=== PATIENT | male | born 1950 | race Caucasian/White ===

== ENCOUNTER 2021-08-25 09:03 | Outpatient (REF) | payer MEDICARE, SELFPAY ==
[2021-08-25 11:28] LABS: MANUAL DIFF FLAG NO
[2021-08-25 11:49] LABS: Basophils Percent Auto 0.9 % (0-2); Eosinophils Absolute Auto 0.2 X10*3/uL (0.0-0.4); Eosinophils Percent Auto 4.6 % (0-4); Hematocrit 41.9 % (42.0-52.0); Hemoglobin 13.2 g/dl (14.0-18.0); Imm Gran Abs Auto 0.01 X10*3/uL (0.00-0.03); Imm Gran Pct Auto 0.2 % (0.0-0.4); Lymphocytes Absolute Auto 1.2 X10*3/uL (1.2-4.9); Lymphocytes Percent Auto 26.7 % (20-40); Mean Corpuscular HGB Conc 31.5 g/dl (31.0-36.0); Mean Corpuscular Hemoglobin 26.1 pg (27.0-33.0); Mean Platelet Volume 11.5 fL (9.4-12.4); Monocytes Absolute Auto 0.6 X10*3/uL (0.1-1.2); Monocytes Percent Auto 12.6 % (2-11); Neutrophils Absolute Auto 2.4 x10*3/uL (2.0-8.3); Platelet Count 247 X10*3/uL (160-400); Red Blood Count 5.05 X10*6/uL (4.60-5.80); Red Cell Distribution Width 14.4 % (11.0-16.0); White Blood Count 4.4 X10*3/uL (4.8-10.8)
[2021-08-25 12:01] LABS: Alanine Aminotransferase 18 U/L (0-40); Albumin Level 4.4 g/dL (3.5-5.0); Alkaline Phosphatase 116 U/L (39-117); Anion Gap 11 (12-20); Aspartate Amino Transferase 18 U/L (5-37); Bilirubin Total 0.4 mg/dL (0.0-1.0); Blood Urea Nitrogen 18 mg/dL (9-16); Calcium 9.6 mg/dL (8.4-10.2); Carbon Dioxide 29 mmol/L (22-29); Chloride 104 mmol/L (96-108); Cholesterol 174 mg/dL; Estimated Glomerular Filt Rate > 60; Glucose Fasting 92 mg/dL (60-99); HDL Cholesterol 35 mg/dL; Iron 34 mcg/dL (45-160); LDL Cholesterol Calculated 120 mg/dl; Percent Iron Saturation 8 % (15-50); Potassium 4.5 mmol/L (3.3-5.1); Sodium 139 mmol/L (135-145); Total Iron Binding Capacity 410 mcg/dL (228-428); Total Protein 7.8 g/dL (6.5-8.0); Triglycerides 98 mg/dL; Unsaturated Iron Binding 376 ug/dL
[2021-08-25 12:24] LABS: Ferritin 30 ng/mL (20-250); Prostate Specific Antigen Scr 3.25 ng/mL (<0.05-4.0); TSH reflex Free T4 8.98 uIU/mL (0.32-4.0)
[2021-08-25 13:09] LABS: Free T4 (Free Thyroxine) 0.93 ng/dL (0.71-1.85)
== END 2021-08-25 09:04 | disposition home or self-care (01) ==
LOC: HO.WFDLDS 09:03
PROVIDERS: Visit Provider Family Medicine
DX: Z00.00 Encounter for general adult medical examination without abnormal findings (principal); D50.9 Iron deficiency anemia, unspecified; E03.9 Hypothyroidism, unspecified; Z12.5 Encounter for screening for malignant neoplasm of prostate
CPT/HCPCS: 36415; 80053; 80061; 82728; 83540; 84153; 84439; 84443; 85025

== ENCOUNTER 2021-09-01 07:43 | Outpatient (REF) | payer MEDICARE, SELFPAY ==
--- NOTE | ~2021-09-01 | CT_ITS ---
EXAMINATION: CT CHEST WITH CONTRAST CLINICAL INFORMATION: Solitary pulmonary nodule COMPARISON: Previous chest CT most recent January 2020 TECHNIQUE: Multidetector volumetric CT imaging of the chest was obtained after the administration of 65 mL of Omnipaque 350 intravenous contrast without immediate adverse reactions. Axial MIP volume rendering provided. Sagittal and coronal reformatted images were obtained. This CT examination was performed using dose optimization techniques as appropriate, variously including the following: *Automated exposure control *Adjustment of mA and/or kV according to patient size (this includes techniques or standardized protocols for targeted exams where dose is matched to indication/reason for exam; i.e. extremities or head) *Use of iterative reconstruction technique DLP: 136 mGy-cm FINDINGS: PASTRY COOK HELPER: Unremarkable LUNGS: There is biapical pleural and parenchymal scarring that is stable. There is a 4 mm peripheral or subpleural right upper lobe nodule axial image 32 series 5 and may be related to and parenchymal scarring that is stable. There is a 3 mm perivascular right lower lobe nodule axial image 149 series 5 that is stable. There is a 3 mm probably calcified right lower lobe nodule axial image 160 series 5 that is stable. The lungs are otherwise clear. No new pulmonary nodule is seen. MEDIASTINUM: There may be a small esophageal hernia. The mediastinum is normal. PLEURA: There is no pleural effusion. No pleural mass or thickening. AXILLA: No lymphadenopathy. UPPER ABDOMEN: There is a 1 x 1.5 cm low-attenuation lesion high in the dome of the right lobe of the liver that is stable and probably represents a cyst. There is a partially calcified low-attenuation lesion in the spleen that measures 3.3 cm that is stable. There is a 1 cm low-attenuation lesion exophytic to the upper pole of the left kidney probably representing a cyst that is stable. OSSEOUS STRUCTURES: There are degenerative changes and mild scoliosis of the spine. CT/CT chest w con IMPRESSION: Stable biapical pleural parenchymal scarring and small pulmonary nodules. Stable abdominal findings. Fleischner guidelines were followed.
[2021-09-01] MEDS: iohexoL 350 MG/ML 100 ML INFUS..BTL IV (08:54)
== END 2021-09-01 07:44 | disposition home or self-care (01) ==
LOC: HO.CT 07:43
PROVIDERS: Visit Provider Family Medicine
DX: R91.1 Solitary pulmonary nodule (principal)
CPT/HCPCS: 71260; Q9967

== ENCOUNTER 2023-10-08 13:59 | Outpatient (AMB) | payer MEDICARE, SELFPAY ==
[2023-10-08 14:04] VITALS: BP 158/80; PULSE 95; O2SAT 95; BMI 34.3
--- NOTE | 2023-10-08 14:04 | MHC.PC.OV ---
Vital Signs 10/08/23 14:04 Height 5 ft 6 in Weight 212 lb 8 oz BMI 34.3 BP 158/80 H Blood Pressure Location Lt brachial Position Sitting Pulse 95 Pulse Source Pulse Oximeter Pulse Oximetry (%) 95 Oxygen Delivery Method Room Air Intake Visit Reasons: Annual Physical Intake Note: Patient is here for his annual physical. Allergies No Known Allergies Allergy (Verified 10/08/23 14:07) Tobacco use date assessed: 10/08/23 Fall risk assessment: No Falls in past year Last assessed Fall Risk: 10/08/23 Dental Screening Dental Screen Date: 10/08/23 Did you have a dental visit in the last 12 months?: Yes Did you have a dental problem in the last 6 months where you did not have access to dental care?: No Was dental information given to patient?: Patient has dentist HPI Annual Physical HPI Details 73 y/o male presents for a CPE with f/u labs and health maintenance. No recent labs to review. Blood pressure today 158/80. He notes he was stressed earlier getting to his appointment today. [facility] Social History Housing: [place] Patient Tobacco Use Status: Never used Tobacco e-Cigarette/Vaping Use: Never Used service: Yes Current occupational status: retired Cognitive needs: No Hearing needs: No Vision needs: Yes (Patient wears glasses) Questionnaire PHQ-9 Over the last 2 weeks, how often have you been bothered by any of the following problems? 1. Little interest or pleasure in doing things: not at all 2. Feeling down, depressed, or hopeless: not at all 3. Trouble falling or staying asleep, or sleeping too much: not at all 4. Feeling tired or having little energy: not at all 5. Poor appetite or overeating: not at all 6. Feeling bad about yourself - or that you are a failure or have let yourself or your family down: not at all 7. Trouble concentrating on things, such as reading the newspaper or watching television: not at all 8. Moving or speaking so slowly that other people could have noticed. Or the opposite - being so fidgety or restless that you have been moving around a lot more than usual: not at all 9. Thoughts that you would be better off or of hurting yourself in some way: not at all Total score: 0 Source: Developed by Drs. Zeke Robbins, Margarita Alexander, Mihir Layton and colleagues, with an educational jovan from [employer] Thrive Questionnaire Date Thrive assessed: 10/08/23 I am a: Patient What is your living situation today?: I have a steady place to live Within the past 12 months, did the food you bought not last and you didn't have the money to get more?: Never true Within the past 12 months, did you worry whether your food would run out before you got money to buy more?: Never true Do you have trouble paying for medicines?: No Do you have trouble getting transportation to medical appointments?: No Do you have trouble paying your heating and electricity bill?: No Do you have trouble taking care of your child, family member or friend?: No Do you have trouble with day-to-day activities such as bathing, preparing meals, shopping, managing finances, etc.?: No Are you currently unemployed and looking for a job?: No Are you interested in more education?: No THRIVE Score: 0 AUDIT C Alcohol Use Questionnaire (AUDIT-C) 1. How often do you have a drink containing alcohol?: Never 3. How often do you have six or more drinks on one occasion?: Never Total Score: 0 HERB-7 AMB Questionnaire HERB-7 Date HERB - 7 assessed: 10/08/23 Feeling nervous, anxious, or on edge: 0 = Not at all Not being able to stop or control worryin = Not at all Worrying too much about different things: 0 = Not at all Trouble relaxin = Not at all Being so restless that it is hard to sit still: 0 = Not at all Becoming easily annoyed or irritable: 0 = Not at all Feeling afraid as if something awful might happen: 0 = Not at all Total HERB-7 score (0-4 normal; 5-9 mild; 10-14 moderate; 15-21 severe): 0 Source: Developed by Drs. Zeke Robbins, Margarita Alexander, Mihir Layton and colleagues, with an educational jovan from [employer]. Review of Systems Const Denies chills, Denies fatigue, Denies fever(s), Denies headache(s) and Denies weakness Eyes Denies change in vision ENT Denies dizziness, Denies headache(s), Denies hearing loss, Denies nasal congestion, Denies sinus pain, Denies sinus pressure and Denies sore throat Card Denies chest pain, Denies lightheadedness, Denies dyspnea and Denies other (palpitations) Resp Denies cough, Denies dyspnea and Denies wheezing GI Denies abdominal pain, Denies melena, Denies hematochezia, Denies change in bowel habits, Denies dyspepsia and Denies nausea Denies hematuria and Denies dysuria Musc Denies abnormal gait, Denies myalgias, Denies arthralgias, Denies numbness and Denies tingling Skin/Breast Denies rash, Denies unusual bruising and Denies wounds Neuro Denies abnormal gait, Denies dizziness, Denies headache(s), Denies memory loss, Denies numbness, Denies Sensory deficit (Neuro), Denies tingling and Denies weakness Psych Denies anxiety, Denies depression and Denies memory loss Endo Denies cold intolerance, Denies fatigue, Denies heat intolerance, Denies polydipsia and Denies polyuria Bubba/Lymph Denies easy bleeding and Denies easy bruising Aller/Immun Denies wheezing Physical exam (Primary Care) Vital Signs: Last Vital Signs Pulse 95 10/08/23 14:04 BP 158/80 H 10/08/23 14:04 Pulse Ox 95 10/08/23 14:04 Oxygen Delivery Method Room Air 10/08/23 14:04 BMI result Body Mass Index 34.3 Tobacco/Smoking Status: Tobacco use Status Tobacco use date assessed 10/08/23 10/08/23 14:15 Patient Tobacco Use Status Never used Tobacco 10/08/23 14:15 e-Cigarette/Vaping Use Never Used 10/08/23 14:15 PHQ-9: PHQ-9 Score PHQ-9: Total score 0 10/08/23 14:15 Thrive Assessment: Date of Thrive Assessment Date Thrive assessed 10/08/23 10/08/23 14:15 Const General: no acute distress, well developed, alert and awake Nutritional Appearance: well nourished Orientation/consciousness: patient oriented x3 HENMT Head: Yes normocephalic and Yes atraumatic Ears: hearing grossly normal bilaterally and TM's normal bilaterally General nose exam: Normal external nose present and Normal nares present Mouth: Normal oral and palatal mucosa present and moist mucous membranes Teeth and gingiva: dentition normal Throat: Yes posterior oropharynx normal Eyes General: appearance normal, both eyes and all related structures Pupils: Equal, round and reactive pupils present and Pupil accommodation reflex normal EOM: EOMs intact bilaterally Neck Neck: Yes normal visual inspection, Yes no lymphadenopathy and Yes trachea midline Thyroid: Thyroid normal Carotids: no bruits Lymphatic: no lymphadenopathy noted Chest Chest palpation & inspection: normal inspection of the chest Resp Effort & Inspection: normal respiratory effort Auscultation: clear to auscultation bilaterally Cardio Rate: regular rate Rhythm: regular rhythm Heart sounds: S1 normal heart sound present, S2 normal heart sound present, no gallops, no murmurs and no rubs Bruits: no abdominal aortic bruits and no carotid bruits GI Palpation (GI): No Abdominal aortic bruit present, Soft to palpation, nontender, No hepatosplenomegaly present and No Rebound tenderness present Auscultation: normal bowel sounds General: Yes no CVA tenderness Back/Spine/Pelvis Back: no CVA tenderness Cervical Spine: cervical ROM normal and No Cervical spine tenderness Thoracic/Lumbar Spine: thoraco-lumbar ROM normal, No pain with thoraco-lumbar ROM, No thoracic spinal tenderness and No lumbar spinal tenderness Skin Lesions: no lesions Rashes: no rashes Trauma: no lacerations or abrasions Wounds: no wounds Nails: normal Neuro General: patient oriented x3 Cranial nerves: Yes Equal, round and reactive pupils present Cognition (Neuro): normal cognition Gait exam (Neuro): Normal gait present Motor exam (neuro): 5/5 motor strength present throughout Sensory Exam: No Sensory deficit (Neuro) Deep tendon reflexes (DTR's): Right patellar reflex intensity grade: 2+ and Left patellar reflex intensity grade: 2+ Extrem General: Yes normal to inspection and No edema Psych Appearance: grossly normal Affect: normal affect Attitude: cooperative Thought process: Normal thought process present Assessment and Plan Assessment & Plan (1) Adult general medical exam: Code(s): Z00.00 - Encounter for general adult medical examination without abnormal findings Plan: 73-year-old?male?presents?for complete?physical?exam Encouraged?healthy?diet?and?exercise (2) Elevated blood pressure reading: Code(s): R03.0 - Elevated blood-pressure reading, without diagnosis of hypertension Plan: Blood?pressure?significantly?elevated?today?though?it?has?been?okay?in?the?past.??Says?his?blood?pressures?at?home?are?okay. He?notes?that?he?has?a?little?bit?stressed?today Will?follow-up?at?his?next?appointment?in?a?couple?of?weeks.??If?still?elevated?will?discuss?medications. (3) GERD (gastroesophageal reflux disease): Code(s): K21.9 - Gastro-esophageal reflux disease without esophagitis Plan: Managed?with?omeprazole Continue?current?regimen (4) Screening for colon cancer: Code(s): Z12.11 - Encounter for screening for malignant neoplasm of colon Plan: Patient?says?he[facility]ly[facility] He?was?told?to?follow-up?in?5?years Up-to-date (5) Screening for prostate cancer: Code(s): Z12.5 - Encounter for screening for malignant neoplasm of prostate Plan: Check?PSA (6) Solitary pulmonary nodule: Code(s): R91.1 - Solitary pulmonary nodule Plan: History?of?pulmonary?nodules Most?recent?CT?scan?showed?stable?nodules?and?recommended?no?further?workup (7) Moderate persistent asthma: Code(s): J45.40 - Moderate persistent asthma, uncomplicated Plan: Patient?notices?some?shortness?of?breath?when?walking?in?cold?air. Can?use?inhaler Try?to?avoid?very?cold?air Orders: Orders Comprehensive [place]. Panel Fast Today Z00.00 - Encounter for general adult medical examination without abnormal findings Microalbumin, Random (w Creat) Today I10 - Essential (primary) hypertension Prostate Specific Antigen Scr Today Z12.5 - Encounter for screening for malignant neoplasm of prostate TSH reflex Free T4 Today Z00.00 - Encounter for general adult medical examination without abnormal findings Complete Blood Count Auto Diff Today Z00.00 - Encounter for general adult medical examination without abnormal findings Lipid Panel Today Z00.00 - Encounter for general adult medical examination without abnormal findings UA and rflx microscopic Today Z00.00 - Encounter for general adult medical examination without abnormal findings Coding Level of Care Code Est Pt Level 3 (18475) Est Pt Prev Care >65y(81970) Diagnoses Adult general medical exam Z00.00 Elevated blood pressure reading R03.0 GERD (gastroesophageal reflux disease) K21.9 Screening for colon cancer Z12.11 Screening for prostate cancer Z12.5 Solitary pulmonary nodule R91.1 Moderate persistent asthma J45.40
== END 2023-10-08 14:41 | disposition home or self-care (01) ==
PROVIDERS: PCP Family Medicine; Visit Provider Family Medicine
DX: Z00.00 Encounter for general adult medical examination without abnormal findings (principal); R03.0 Elevated blood-pressure reading, without diagnosis of hypertension; K21.9 Gastro-esophageal reflux disease without esophagitis; Z12.11 Encounter for screening for malignant neoplasm of colon; Z12.5 Encounter for screening for malignant neoplasm of prostate; R91.1 Solitary pulmonary nodule; J45.40 Moderate persistent asthma, uncomplicated
CPT/HCPCS: 99397

== ENCOUNTER 2023-10-25 09:10 | Outpatient (REF) | payer MEDICARE, SELFPAY ==
[2023-10-25 11:13] LABS: MANUAL DIFF FLAG NO
[2023-10-25 11:32] LABS: Basophils Percent Auto 0.7 % (0-2); Eosinophils Absolute Auto 0.2 X10*3/uL (0.0-0.4); Eosinophils Percent Auto 3.7 % (0-4); Hematocrit 44.8 % (42.0-52.0); Hemoglobin 13.9 g/dl (14.0-18.0); Imm Gran Abs Auto 0.01 X10*3/uL (0.00-0.03); Imm Gran Pct Auto 0.2 % (0.0-0.4); Lymphocytes Percent Auto 23.6 % (20-40); Mean Corpuscular Volume 83.7 fL (80.0-98.0); Mean Platelet Volume 11.5 fL (9.4-12.4); Monocytes Absolute Auto 0.5 X10*3/uL (0.1-1.2); Monocytes Percent Auto 10.3 % (2-11); Neutrophils Absolute Auto 2.7 x10*3/uL (2.0-8.3); Neutrophils Percent Auto 61.5 % (45-73); Platelet Count 237 X10*3/uL (160-400); Red Blood Count 5.35 X10*6/uL (4.60-5.80); Red Cell Distribution Width 14.5 % (11.0-16.0); White Blood Count 4.4 X10*3/uL (4.8-10.8)
[2023-10-25 11:38] LABS: Appearance Urine Clear; Color Urine Yellow; Glucose Urine UA Negative (Negative); Leukocyte Esterase Urine Negative (Negative); Nitrite Urine Negative (Negative); Urine Blood Negative (Negative); Urine Ketones Negative (Negative); Urine Protein Negative (Neg-Trace)
[2023-10-25 11:48] LABS: Chloride 102 mmol/L (96-108); Potassium 4.5 mmol/L (3.3-5.1); Sodium 139 mmol/L (135-145)
[2023-10-25 11:49] LABS: Alanine Aminotransferase 14 U/L (0-40); Albumin Level 4.4 g/dL (3.5-5.0); Alkaline Phosphatase 128 U/L (39-117); Anion Gap 12 (12-20); Aspartate Amino Transferase 18 U/L (5-37); Bilirubin Total 0.3 mg/dL (0.0-1.0); Blood Urea Nitrogen 19 mg/dL (9-16); Calcium 9.8 mg/dL (8.4-10.2); Carbon Dioxide 30 mmol/L (22-29); Cholesterol 190 mg/dL (<200); Estimated Glomerular Filt Rate > 60; Glucose Fasting 91 mg/dL (60-99); HDL Cholesterol 38 mg/dL (>40); LDL Cholesterol Calculated 132 mg/dL (<100); Total Protein 8.1 g/dL (6.5-8.0); Triglycerides 102 mg/dL (<150)
[2023-10-25 12:02] LABS: Prostate Specific Antigen Scr 3.64 ng/mL (<0.05-4.0)
[2023-10-25 12:10] LABS: Free T4 (Free Thyroxine) 0.81 ng/dL (0.71-1.85); Thyroid Stimulating Hormone 11.69 uIU/mL (0.32-4.0)
[2023-10-25 12:11] LABS: Creatinine Urine 112.14 mg/dL; Microalbum/Creatinine Ratio Ur 28.5 ug/mg cr (<30)
[2023-10-26 09:17] LABS: Triiodothyronine T3 Total 122 ng/dL (76-181)
== END 2023-10-25 09:11 | disposition home or self-care (01) ==
LOC: HO.WFDLDS 09:10
PROVIDERS: Visit Provider Family Medicine
DX: Z00.00 Encounter for general adult medical examination without abnormal findings (principal); I10 Essential (primary) hypertension; E03.9 Hypothyroidism, unspecified; Z12.5 Encounter for screening for malignant neoplasm of prostate
CPT/HCPCS: 36415; 80053; 80061; 81003; 82043; 82570; 84153; 84439; 84443; 84480; 85025

== ENCOUNTER 2023-11-05 13:21 | Outpatient (AMB) | payer MEDICARE, SELFPAY ==
--- NOTE | 2023-11-05 13:36 | MHC.PC.OV ---
Vital Signs 11/05/23 13:37 Height 5 ft 6 in Weight 210 lb BMI 33.9 BP 134/74 Blood Pressure Location Lt brachial Position Sitting Pulse 81 Pulse Source Pulse Oximeter Pulse Oximetry (%) 94 Oxygen Delivery Method Room Air Intake Visit Reasons: follow up labs/BP Intake Note: Patient is here to follow up on labs and blood pressure. Allergies No Known Allergies Allergy (Verified 11/05/23 13:38) Tobacco use date assessed: 11/05/23 Fall risk assessment: No Falls in past year Last assessed Fall Risk: 11/05/23 Dental Screening Dental Screen Date: 11/05/23 Did you have a dental visit in the last 12 months?: Yes Did you have a dental problem in the last 6 months where you did not have access to dental care?: No Was dental information given to patient?: Patient has dentist HPI follow up labs/BP HPI Details 73 y/o male presents to f/u blood pressures and labs. Blood pressure today 134/74. BP last office visit was 158/80. Labs were drawn 10/25/23. Hx of iron deficiency anemia. Hgb mildly low. LDL mildly elevated at 132. HDL low at 38. Hx of hypothyroidism and TSH level 11.69. PFSH Social History Housing: House Patient Tobacco Use Status: Never used Tobacco e-Cigarette/Vaping Use: Never Used service: Yes Current occupational status: retired Cognitive needs: No Hearing needs: No Vision needs: Yes (Patient wears glasses) Questionnaire Thrive Questionnaire Date Thrive assessed: 10/08/23 HERB-7 AMB Questionnaire HERB-7 Date HERB - 7 assessed: 10/08/23 Source: Developed by Drs. Zeke Robbins, Margarita Alexander, Mihir Layton and colleagues, with an educational jovan from [employer]. Review of Systems Const Denies chills, Denies fatigue, Denies fever(s), Denies headache(s) and Denies weakness ENT Denies dizziness and Denies headache(s) Card Denies chest pain, Denies lightheadedness, Denies dyspnea and Denies other (Palpitations) Resp Denies cough, Denies dyspnea, Denies wheezing and Denies other ( shortness of breath) Musc Denies numbness and Denies tingling Neuro Denies dizziness, Denies headache(s), Denies numbness, Denies tingling, Denies paresthesias and Denies weakness Psych Denies anxiety and Denies depression Endo Denies fatigue Aller/Immun Denies wheezing Physical exam (Primary Care) Vital Signs: Last Vital Signs Pulse 81 11/05/23 13:37 BP 134/74 11/05/23 13:37 Pulse Ox 94 11/05/23 13:37 Oxygen Delivery Method Room Air 11/05/23 13:37 BMI result Body Mass Index 33.9 Tobacco/Smoking Status: Tobacco use Status Tobacco use date assessed 11/05/23 11/05/23 13:39 Patient Tobacco Use Status Never used Tobacco 11/05/23 13:37 e-Cigarette/Vaping Use Never Used 11/05/23 13:37 Thrive Assessment: Date of Thrive Assessment Date Thrive assessed 10/08/23 11/05/23 13:37 Const General: no acute distress and well developed Nutritional Appearance: well nourished Orientation/consciousness: patient oriented x3 [facility] Head: Yes normocephalic and Yes atraumatic Eyes General: appearance normal, both eyes and all related structures Pupils: Equal, round and reactive pupils present EOM: EOMs intact bilaterally Resp Effort & Inspection: normal respiratory effort Auscultation: clear to auscultation bilaterally Cardio Rate: regular rate Rhythm: regular rhythm Heart sounds: S1 normal heart sound present, S2 normal heart sound present, no gallops, no murmurs and no rubs Neuro General: patient oriented x3 and gait normal Cranial nerves: Yes Equal, round and reactive pupils present Psych Affect: normal affect Assessment and Plan Assessment & Plan (1) Elevated blood pressure reading: Code(s): R03.0 - Elevated blood-pressure reading, without diagnosis of hypertension Plan: Blood?pressure?in?prehypertensive?range. Encouraged?diet?low?in?salt/sodium Encouraged?weight?loss?and?exercise (2) Iron deficiency anemia: Code(s): D50.9 - Iron deficiency anemia, unspecified Plan: Stable Will?monitor Encouraged?high?iron?foods (3) Acquired hypothyroidism: Code(s): E03.9 - Hypothyroidism, unspecified Plan: Start?levothyroxine?50?mcg?daily Will?recheck?at?next?visit?in?about?3?months (4) Hypercholesterolemia: Code(s): E78.00 - Pure hypercholesterolemia, unspecified Plan: Mildly?elevated?LDL?and?mildly?low?HDL Encouraged?a?diet?low?in?saturated?fats?and?cholesterol Encouraged?weight?loss?and?exercise (5) Low HDL (under 40): Code(s): E78.6 - Lipoprotein deficiency Plan: As?above Orders: Orders Lipid Panel Today E78.00 - Pure hypercholesterolemia, unspecified, Z00.00 - Encounter for general adult medical examination without abnormal findings Free T4 (Free Thyroxine) Today E03.9 - Hypothyroidism, unspecified Thyroid Stimulating Hormone Today E03.9 - Hypothyroidism, unspecified Triiodothyronine T3 Total Today E03.9 - Hypothyroidism, unspecified Medications: New levothyroxine 50 mcg PO DAILY 90 tabs 1RF 90 days Coding Level of Care Code Est Pt Level 4 (91112) Diagnoses Elevated blood pressure reading R03.0 Iron deficiency anemia D50.9 Acquired hypothyroidism E03.9 Hypercholesterolemia E78.00 Low HDL (under 40) E78.6
[2023-11-05 13:37] VITALS: BP 134/74; PULSE 81; O2SAT 94; BMI 33.9
== END 2023-11-05 14:02 | disposition home or self-care (01) ==
PROVIDERS: PCP Family Medicine; Visit Provider Family Medicine
DX: R03.0 Elevated blood-pressure reading, without diagnosis of hypertension (principal); D50.9 Iron deficiency anemia, unspecified; E03.9 Hypothyroidism, unspecified; E78.00 Pure hypercholesterolemia, unspecified; E78.6 Lipoprotein deficiency
CPT/HCPCS: 99214

== ENCOUNTER 2024-01-03 11:54 | Outpatient (AMB) | payer MEDICARE, SELFPAY ==
--- NOTE | 2024-01-03 11:56 | MHC.OFFWIV ---
Intake Vital Signs 01/03/24 11:57 01/03/24 12:00 Height 5 ft 6 in Weight 205 lb BMI 33.1 BP 148/90 H 144/88 H Blood Pressure Location Rt brachial Rt brachial Position Sitting Sitting Respiration 16 Pulse 87 Pulse Source Pulse Oximeter Temp 97.3 F Temp Source Oral Pulse Oximetry (%) 96 Oxygen Delivery Method Room Air Intake Visit Reasons: ?tick bite would like to make sure not infected Intake Note: Tick bite inside of right thigh. Patient Tobacco Use Status: Never used Tobacco Otolaryngology Nurse Required: No Allergies tramadol Allergy (Severe, Verified 01/03/24 11:57) Nightmare Do you need a note to return to daycare/school/sports/work: No HPI ?tick bite would like to make sure not infected HPI Details Patient is a 73-year-old male with a significant past medical history asthma, GERD, hyperlipidemia, elevated blood pressure readings without diagnosis of hypertension presenting today with complaints of a tick bite. He states that he believes he got bit by a tick sometime over the weekend and on Sunday tried taking the tick out himself. He states that it was imbedded and hard to remove and he had to use tweezers. He states that surrounding the bite the skin is now red but not painful. He just wants to make sure that he does not develop Lyme disease. No history of Lyme. Denies any joint pain or swelling, paresthesias, fever chills. He states that he has had tick bites in the past and has 2 dogs at home who have tics on them often. His blood pressure today is elevated in the office at 144/88. States that it has been elevated in the past but he has been trying to watch his diet. He does not want to start a medication just yet and does have an upcoming appointment with his PCP. He states that he knows after today that he needs to be better with this. [facility] Social History Housing: House Patient Tobacco Use Status: Never used Tobacco e-Cigarette/Vaping Use: Never Used service: Yes Current occupational status: retired Cognitive needs: No Hearing needs: No Vision needs: Yes (Patient wears glasses) Physical Exam Vital Signs: Last Vital Signs Temp 97.3 F 01/03/24 11:57 Pulse 87 01/03/24 11:57 Resp 16 01/03/24 11:57 BP 144/88 H 01/03/24 12:00 Pulse Ox 96 01/03/24 11:57 Oxygen Delivery Method Room Air 01/03/24 11:57 BMI result Body Mass Index 33.1 Const Orientation/consciousness: patient oriented x3 Neck Thyroid: Thyroid normal Lymphatic: no lymphadenopathy noted Resp Auscultation: clear to auscultation bilaterally Cardio Rate: regular rate Rhythm: regular rhythm Heart sounds: S1 normal heart sound present and S2 normal heart sound present Skin Other: There is a 1 cm, slightly irregular circular, erythematous and purplish lesion noted on the medial right upper thigh. No blanching noted. It is nontender. No induration or fluctuance noted. Neuro General: patient oriented x3, gait normal and no focal motor deficits Assessment & Plan Assessment & Plan (1) Tick bite of right thigh: Code(s): S70.361A - Insect bite (nonvenomous), right thigh, initial encounter; W57.XXXA - Bitten or stung by nonvenomous insect and other nonvenomous arthropods, initial encounter Qualifiers: Encounter type: initial encounter Qualified Code(s): S70.361A - Insect bite (nonvenomous), right thigh, initial encounter; W57.XXXA - Bitten or stung by nonvenomous insect and other nonvenomous arthropods, initial encounter Plan: No signs of active Lyme. We will treat with doxycycline 200 mg. Advised to return in about 6 weeks to have Lyme antibody testing or sooner if he develops any signs or symptoms of tick-borne illness. Patient understands and agrees with this (2) Elevated blood pressure reading: Code(s): R03.0 - Elevated blood-pressure reading, without diagnosis of hypertension Plan: He has an appointment with his PCP next month. Discussed diet and lifestyle modifications. Orders: Orders Lyme IgG/IgM w/reflex to WB Today Medications: New doxycycline hyclate 200 mg (2 x 100 mg) PO ONCE 2 tabs 0RF Coding Level of Care Code Est Pt Level 4 (57223) Diagnoses Tick bite of right thigh, initial encounter S70.361A; W57.XXXA Encounter type: initial encounter Elevated blood pressure reading R03.0
[2024-01-03 11:57] VITALS: BP 148/90; PULSE 87; RESP 16; TEMP 36.3; O2SAT 96; BMI 33.1
[2024-01-03 12:00] VITALS: BP 144/88
== END 2024-01-03 12:56 | disposition home or self-care (01) ==
PROVIDERS: PCP Family Medicine; Visit Provider Physician Assistant
DX: S70.361A Insect bite (nonvenomous), right thigh, initial encounter (principal); W57.XXXA Bitten or stung by nonvenomous insect and other nonvenomous arthropods, initial encounter; R03.0 Elevated blood-pressure reading, without diagnosis of hypertension
CPT/HCPCS: 99214

== ENCOUNTER 2024-02-15 09:49 | Outpatient (AMB) | payer MEDICARE, SELFPAY ==
--- NOTE | 2024-02-15 10:26 | AM.OFFWIN_ITS ---
Intake Vital Signs 02/15/24 10:28 Height 5 ft 6 in Weight 196 lb 2 oz BMI 31.7 BP 155/93 H Blood Pressure Location Lt brachial Position Sitting Respiration 15 Pulse 101 H Pulse Source Pulse Oximeter Temp 99.3 F Temp Source Temporal Artery Scan Pulse Oximetry (%) 94 Oxygen Delivery Method Room Air Intake Visit Reasons: SINUS HEADACHE Intake Note: Needs refill on advair diskus. Patient Tobacco Use Status: Never used Tobacco Client Application Support Specialist Required: No Accompanied by: Spouse Allergies tramadol Allergy (Severe, Verified 02/15/24 10:33) Nightmare PFSH Social History Housing: House Patient Tobacco Use Status: Never used Tobacco e-Cigarette/Vaping Use: Never Used service: Yes Current occupational status: retired Cognitive needs: No Hearing needs: No Vision needs: Yes (Patient wears glasses) Coding
[2024-02-15 10:28] VITALS: BP 155/93; PULSE 101; RESP 15; TEMP 37.4; O2SAT 94; BMI 31.7
--- NOTE | 2024-02-15 11:02 | AM.OFFWIN_ITS ---
Intake Vital Signs 02/15/24 10:28 02/15/24 11:24 Height 5 ft 6 in Weight 196 lb 2 oz BMI 31.7 BP 155/93 H 134/93 H Blood Pressure Location Lt brachial Position Sitting Respiration 15 Pulse 101 H 98 Pulse Source Pulse Oximeter Temp 99.3 F Temp Source Temporal Artery Scan Pulse Oximetry (%) 94 95 Oxygen Delivery Method Room Air Intake Visit Reasons: SINUS HEADACHE Patient Tobacco Use Status: Never used Tobacco Allergies tramadol Allergy (Severe, Verified 02/15/24 11:09) Nightmare Medication List - Last Reconciled 02/15/24 by Teto Morales CNP albuterol sulfate 90 mcg/actuation (ProAir HFA) 2 puffs inhalation Q4-6H PRN 30 days fluticasone propion-salmeterol 250-50 mcg/dose (Advair Diskus) 1 inh inhalation Q12H 30 days levothyroxine 75 mcg PO DAILY 90 days omeprazole 20 mg PO QAM 90 days HPI HPI Comments History of Present Illness Details This is a 73-year-old male with a past medical history of hypercholesterolemia, elevated blood pressure without a diagnosis of hypertension, GERD, moderate persistent asthma and hypothyroidism presenting for a sinus headache. The patient is accompanied by his fiancee. They were both sick 2 weeks ago with cough and congestion. Tested negative for COVID and RSV. He started to feel better after a week, and then a week ago he developed worsening sinus congestion and sinus headaches. He is fatigued. He has green nasal discharge when he blows his nose. He has nausea but no abdominal pain or vomiting. The congestion makes it difficult to sleep. He tried taking Mucinex without improvement. No chills or fevers recorded at home. Temperature today is 99.3. He required his albuterol inhaler twice within the past week for cough associated with wheezing. It alleviated his symptoms. He is also on Advair. Currently denies wheezing, shortness of breath and chest pain. His initial blood pressure reading was 155/93 and improved to 134/93. He does not take medication for blood pressure, but he says it fluctuates. [facility] Social History Housing: House Patient Tobacco Use Status: Never used Tobacco e-Cigarette/Vaping Use: Never Used service: Yes Current occupational status: retired Cognitive needs: No Hearing needs: No Vision needs: Yes (Patient wears glasses) Review of Systems Const Details: Eyes: No vision changes, eye pain, eye redness or discharge. ENT: No ear pain, hearing loss, sore throat, see HPI Respiratory: see HPI Cardiovascular: No chest pain Physical Exam Vital Signs: Last Vital Signs Temp 99.3 F 02/15/24 10:28 Pulse 101 H 02/15/24 10:28 Resp 15 02/15/24 10:28 BP 155/93 H 02/15/24 10:28 Pulse Ox 94 02/15/24 10:28 Oxygen Delivery Method Room Air 02/15/24 10:28 BMI result Body Mass Index 31.7 Const Other: Constitutional: Alert, in no distress. Fatigued. Head: Normocephalic. Eyes: Pupils are equal, round and reactive to light. Ear, Nose and Throat: Canals clear. TMs normal. Nasal mucosa mildly erythematous. No nasal discharge. Throat cobble stoned. Bilateral maxillary and frontal sinus tenderness. Neck: No lymphadenopathy. Respiratory: Clear to auscultation. Cardiovascular: S1 S2 regular. No murmurs Neurologic: No focal neurological deficits. Extremities: Warm and well perfused. Assessment & Plan Assessment & Plan (1) Acute sinus infection: Code(s): J01.90 - Acute sinusitis, unspecified Plan: The patient will be treated with a 10 day course of Augmentin. The patient is instructed to take the medication with food and eat yogurt or take a probiotic to minimize the chance of GI upset. Recommended supportive care including Mucinex, Vicks, Saline nasal spray, cool mist humidifier. Warning signs warranting further evaluation reviewed. (2) Moderate persistent asthma: Code(s): J45.40 - Moderate persistent asthma, uncomplicated Plan: Lungs clear. No evidence of exacerbation today. Continue current treatment regimen. (3) Elevated blood pressure reading: Code(s): R03.0 - Elevated blood-pressure reading, without diagnosis of hypertension Plan: Schedule nurse visit in 2-4 weeks for recheck once symptoms resolve. Medications: New amoxicillin-pot clavulanate 875-125 mg 1 tab PO BID 10 days 20 tabs 0RF Coding Level of Care Code Est Pt Level 4 (75027) Diagnoses Acute sinus infection J01.90 Moderate persistent asthma J45.40 Elevated blood pressure reading R03.0
[2024-02-15 11:24] VITALS: BP 134/93; PULSE 98; O2SAT 95
== END 2024-02-15 11:25 | disposition home or self-care (01) ==
PROVIDERS: PCP Family Medicine; Visit Provider Physician Assistant Medical
DX: J01.90 Acute sinusitis, unspecified (principal); J45.40 Moderate persistent asthma, uncomplicated; R03.0 Elevated blood-pressure reading, without diagnosis of hypertension
CPT/HCPCS: 99213

== ENCOUNTER 2024-09-12 11:23 | Outpatient (AMB) | payer OTHER, SELFPAY ==
--- NOTE | 2024-09-12 11:26 | MHC.PC.OV ---
Vital Signs 09/12/24 11:37 Height 5 ft 6 in Weight 206 lb BMI 33.2 BP 136/86 Blood Pressure Location Lt brachial Position Sitting Pulse 81 Pulse Source Pulse Oximeter Pulse Oximetry (%) 97 Oxygen Delivery Method Room Air Intake Visit Reasons: millie from [facility] Intake Note: New patient visit. Headache for two weeks. 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 Allergies tramadol Allergy (Severe, Verified 09/12/24 11:30) Nightmare Tobacco use date assessed: 09/12/24 Fall risk assessment: No Falls in past year Dental Screening Dental Screen Date: 09/12/24 Did you have a dental visit in the last 12 months?: Yes Did you have a dental problem in the last 6 months where you did not have access to dental care?: No Was dental information given to patient?: Patient has dentist HPI HPI Comments History of Present Illness Details This is a 73-year-old male with a past medical history of hypercholesterolemia, elevated blood pressure without a diagnosis of hypertension, GERD, moderate persistent asthma and hypothyroidism presenting to establish care and to discuss headaches. He is an internal transfer Patient started having daily headaches about one month ago. Pressure over the forehead, temples, left>right. Starts around 11 to 1130 am and lasts all day if does not take excedrin. Takes once daily. No light or sound sensitivity. Denies maxillary pressure, ear fullness. No fevers CV: Blood pressure fluctuates. Not on medications. Asthma: On advair, albuterol prn. Hypothyroid: following with Dr Dumont. Last TSH in 8s. No replacement. Will follow up with him in 6 month Rash-jock itch. Has been using clotrimazole with some relief. Eye exam: 4 months ago. Denies vision changes. ROS see HPI PHYSICAL EXAM: GENERAL: Alert and oriented x 3. NAD EYES: EOMI. Anicteric. HENT: Moist mucous membranes. No scleral icterus. No cervical lymphadenopathy. LUNGS: Clear to auscultation bilaterally. CARDIOVASCULAR: Regular rate and rhythm. No murmur. No JVD. ABDOMEN: Soft, non-tender +bs EXTREMITIES: No edema. Non-tender. SKIN: Tinea cruris NEUROLOGIC: No focal neurological deficits. CN II-XII grossly intact PSYCHIATRIC: Cooperative. Appropriate mood and affect [facility] Medical History H/O nephrolithotomy with removal of calculi Surgical History History of bilateral knee replacement Family History Other No known health problems Social History Housing: House Alcohol intake: never Patient Tobacco Use Status: Never used Tobacco e-Cigarette/Vaping Use: Never Used Second Hand Smoke Exposure: No service: Yes Current occupational status: retired Cognitive needs: No Hearing needs: No Vision needs: Yes (Patient wears glasses) Questionnaire PHQ-9 Over the last 2 weeks, how often have you been bothered by any of the following problems? 1. Little interest or pleasure in doing things: not at all 2. Feeling down, depressed, or hopeless: not at all 3. Trouble falling or staying asleep, or sleeping too much: not at all 4. Feeling tired or having little energy: not at all 5. Poor appetite or overeating: not at all 6. Feeling bad about yourself - or that you are a failure or have let yourself or your family down: not at all 7. Trouble concentrating on things, such as reading the newspaper or watching television: not at all 8. Moving or speaking so slowly that other people could have noticed. Or the opposite - being so fidgety or restless that you have been moving around a lot more than usual: not at all 9. Thoughts that you would be better off or of hurting yourself in some way: not at all Total score: 0 Depression Screening Interpretation: Negative Depression Screening Done: Yes 01185 - PHQ-9 Billing: Yes Source: Developed by Drs. Zeke Robbins, Margarita Alexander, Mihir Layton and colleagues, with an educational jovan from [employer]. Thrive Questionnaire Date Thrive assessed: 10/08/23 I am a: Patient What is your living situation today?: I have a steady place to live Within the past 12 months, did the food you bought not last and you didn't have the money to get more?: Often true Within the past 12 months, did you worry whether your food would run out before you got money to buy more?: I choose not to answer this question Do you have trouble paying for medicines?: No Do you have trouble getting transportation to medical appointments?: No Do you have trouble paying your heating and electricity bill?: No Do you have trouble taking care of your child, family member or friend?: No Do you have trouble with day-to-day activities such as bathing, preparing meals, shopping, managing finances, etc.?: No Are you currently unemployed and looking for a job?: Yes Are you interested in more education?: No Please select the resources that you would like help with: None Currently or been in a relationship where the following occur: I choose not to answer THRIVE Score: 1 AUDIT C Alcohol Use Questionnaire (AUDIT-C) 1. How often do you have a drink containing alcohol?: Never Total Score: 0 HERB-7 AMB Questionnaire HERB-7 Date HERB - 7 assessed: 09/12/24 Feeling nervous, anxious, or on edge: 0 = Not at all Not being able to stop or control worryin = Not at all Worrying too much about different things: 0 = Not at all Trouble relaxin = Not at all Being so restless that it is hard to sit still: 0 = Not at all Becoming easily annoyed or irritable: 0 = Not at all Feeling afraid as if something awful might happen: 0 = Not at all Total HERB-7 score (0-4 normal; 5-9 mild; 10-14 moderate; 15-21 severe): 0 Source: Developed by Drs. Zeke Robbins, Margarita Alexander, Mihir Layton and colleagues, with an educational jovan from [employer]. HERB-7 Assessment Billing HERB-7 Assessment Tool: HERB-7 Assessment 84763 ACT Questionnaire In the past 4 weeks, how much of the time did your asthma keep you from getting as much done at work, school or at home?: All of the time During the past 4 weeks, how often have you had shortness of breath?: 1-2 times a week During the past 4 weeks, how often did your asthma symptoms wake you up at night or earlier than usual in the morning?: 4 or more nights a week During the past 4 weeks, how often have you had to use your rescue inhaler or nebulizer medication?: 1-2 times a week How would you rate your asthma control during the past 4 weeks?: Well controlled ACT Interpretation: Positive Score: 12 Physical exam (Primary Care) Vital Signs: Last Vital Signs Pulse 81 09/12/24 11:37 BP 136/86 09/12/24 11:37 Pulse Ox 97 09/12/24 11:37 Oxygen Delivery Method Room Air 09/12/24 11:37 BMI result Body Mass Index 33.2 Tobacco/Smoking Status: Tobacco use Status Tobacco use date assessed 09/12/24 09/12/24 11:41 Patient Tobacco Use Status Never used Tobacco 09/12/24 11:41 e-Cigarette/Vaping Use Never Used 09/12/24 11:35 PHQ-9: PHQ-9 Score PHQ-9: Total score 0 09/12/24 11:49 Depression Screening Interpretation: Negative Thrive Assessment: Date of Thrive Assessment Date Thrive assessed 10/08/23 09/12/24 11:27 Currently or been in a relationship where the following occur: I choose not to answer Coding Level of Care Code Est Pt Level 5 (91506) Diagnoses New onset of headaches R51.9 Tinea cruris B35.6 Additional Codes Asthma Control Questionnaire - ACT Interpretation: Positive ([id number]) HERB-7 Assessment Billing - HERB-7 Assessment Tool: HERB-7 Assessment 53067 ([id number]) PHQ-9 - 42962 - PHQ-9 Billing: Yes ([id number]) Time Spent (min) 45 Assessment & Plan Assessment & Plan (1) New onset of headaches: Code(s): R51.9 - Headache, unspecified Category: Medical Plan: One month of daily headaches. No previous history of headaches. Vision utd, not waking up with headache. MRI ordered-r/o mass aneurysm. Will trial augmentin x 10 days for possibility of frontal sinus infection (2) Tinea cruris: Code(s): B35.6 - Tinea cruris Category: Medical Plan: Fluconazole ordered. Continue prn topical Orders: Orders Complete Blood Count Auto Diff Today B35.6 - Tinea cruris, E78.00 - Pure hypercholesterolemia, unspecified, R03.0 - Elevated blood-pressure reading, without diagnosis of hypertension, R51.9 - Headache, unspecified, Z12.5 - Encounter for screening for malignant neoplasm of prostate IRON PROFILE Today D64.9 - Anemia, unspecified MR head/brain wo con Today R51.9 - Headache, unspecified Comprehensive Met. Panel Today B35.6 - Tinea cruris, E78.00 - Pure hypercholesterolemia, unspecified, R03.0 - Elevated blood-pressure reading, without diagnosis of hypertension, R51.9 - Headache, unspecified, Z12.5 - Encounter for screening for malignant neoplasm of prostate Lyme IgG/IgM w/reflex to WB Today B35.6 - Tinea cruris, E78.00 - Pure hypercholesterolemia, unspecified, R03.0 - Elevated blood-pressure reading, without diagnosis of hypertension, R51.9 - Headache, unspecified, Z12.5 - Encounter for screening for malignant neoplasm of prostate Prostate Specific Antigen Today B35.6 - Tinea cruris, E78.00 - Pure hypercholesterolemia, unspecified, R03.0 - Elevated blood-pressure reading, without diagnosis of hypertension, R51.9 - Headache, unspecified, Z12.5 - Encounter for screening for malignant neoplasm of prostate Medications: New fluconazole may repeat second dose 72 hrs after first dose if symptoms persist 150 mg PO Q3D 2 tabs 0RF 2 doses amoxicillin-pot clavulanate 875-125 mg 1 tab PO BID 20 tabs 0RF
[2024-09-12 11:37] VITALS: BP 136/86; PULSE 81; O2SAT 97; BMI 33.2
== END 2024-09-12 12:06 | disposition home or self-care (01) ==
PROVIDERS: PCP Family Medicine; Visit Provider Internal Medicine
DX: R51.9 Headache, unspecified (principal); B35.6 Tinea cruris

== ENCOUNTER → 2024-09-12 11:23 | Outpatient (BNVA) | payer OTHER, SELFPAY | PROVIDERS: PCP Family Medicine; Visit Provider Internal Medicine | DX: R51.9 Headache, unspecified (principal); B35.6 Tinea cruris; I10 Essential (primary) hypertension; J45.30 Mild persistent asthma, uncomplicated; E03.9 Hypothyroidism, unspecified | CPT/HCPCS: 96127; 96160 ==

== ENCOUNTER 2024-09-16 10:16 | Outpatient (REF) | payer OTHER, SELFPAY ==
[2024-09-16 11:20] LABS: MANUAL DIFF FLAG NO
[2024-09-16 11:30] LABS: Basophils Percent Auto 0.6 % (0-2); Eosinophils Absolute Auto 0.2 X10*3/uL (0.0-0.4); Hematocrit 42.3 % (42.0-52.0); Hemoglobin 13.8 g/dl (14.0-18.0); Imm Gran Abs Auto 0.01 X10*3/uL (0.00-0.03); Imm Gran Pct Auto 0.2 % (0.0-0.4); Lymphocytes Absolute Auto 1.2 X10*3/uL (1.2-4.9); Lymphocytes Percent Auto 23.3 % (20-40); Mean Corpuscular HGB Conc 32.6 g/dl (31.0-36.0); Mean Corpuscular Hemoglobin 26.9 pg (27.0-33.0); Mean Corpuscular Volume 82.5 fL (80.0-98.0); Mean Platelet Volume 11.1 fL (9.4-12.4); Monocytes Absolute Auto 0.6 X10*3/uL (0.1-1.2); Monocytes Percent Auto 11.5 % (2-11); Neutrophils Percent Auto 61.4 % (45-73); Platelet Count 257 X10*3/uL (160-400); Red Blood Count 5.13 X10*6/uL (4.60-5.80); White Blood Count 4.9 X10*3/uL (4.8-10.8)
[2024-09-16 12:01] LABS: Alanine Aminotransferase 15 U/L (0-40); Albumin Level 4.3 g/dL (3.5-5.0); Alkaline Phosphatase 123 U/L (39-117); Anion Gap 8 (12-20); Aspartate Amino Transferase 23 U/L (5-37); Bilirubin Total 0.4 mg/dL (0.0-1.0); Blood Urea Nitrogen 18 mg/dL (9-16); Calcium 9.3 mg/dL (8.4-10.2); Carbon Dioxide 31 mmol/L (22-29); Chloride 105 mmol/L (96-108); Estimated Glomerular Filt Rate > 60; Glucose Random 83 mg/dL (60-115); Iron 51 mcg/dL (45-160); Percent Iron Saturation 15 % (15-50); Potassium 4.3 mmol/L (3.3-5.1); Sodium 140 mmol/L (135-145); Total Iron Binding Capacity 333 mcg/dL (228-428); Unsaturated Iron Binding 282 ug/dL
[2024-09-16 12:18] LABS: Prostate Specific Antigen 3.95 ng/mL (<0.05-4.0)
[2024-09-17 23:29] LABS: Lyme Blot 0.92 index
[2024-09-22 08:25] LABS: 18 KD (IgG) Band NON-REACTIVE; 23 KD (IgG) Band NON-REACTIVE; 23 KD (IgM) Band NON-REACTIVE; 28 KD (IgG) Band NON-REACTIVE; 30 KD (IgG) Band NON-REACTIVE; 39 KD (IgM) Band NON-REACTIVE; 39KD (IgG) Band NON-REACTIVE; 41 KD (IgM) Band NON-REACTIVE; 41KD (IgG) Band NON-REACTIVE; 45 KD (IgG) Band NON-REACTIVE; 58 KD (IgG) Band NON-REACTIVE; 66 KD (IgG) Band NON-REACTIVE; 93 KD (IgG) Band NON-REACTIVE; Lyme IgG Blot Interp NEGATIVE (NEGATIVE); Lyme IgM Blot Interp NEGATIVE (NEGATIVE)
[2024-09-22 08:27] LABS: Lyme Abs Screen EQUIVOCAL
== END 2024-09-16 10:17 | disposition home or self-care (01) ==
LOC: HO.WFDLDS 10:16
PROVIDERS: Visit Provider Internal Medicine
DX: B35.6 Tinea cruris (principal); R51.9 Headache, unspecified; E78.00 Pure hypercholesterolemia, unspecified; R03.0 Elevated blood-pressure reading, without diagnosis of hypertension; Z12.5 Encounter for screening for malignant neoplasm of prostate; D64.9 Anemia, unspecified
CPT/HCPCS: 36415; 80053; 83540; 84153; 85025; 86617; 86618

== ENCOUNTER 2024-10-04 14:19 | Outpatient (REF) | payer OTHER, SELFPAY ==
--- NOTE | ~2024-10-04 | MR_ITS ---
EXAMINATION: MR BRAIN WITHOUT CONTRAST CLINICAL INFORMATION: Headache. COMPARISON: None available. TECHNIQUE: MRI of the brain was obtained using routine sequences without contrast. FINDINGS: There is a mucosal thickening and restricted diffusion fluid occupying the entire maxillary sinuses. No acute intracranial hemorrhage, mass effect, midline shift, hydrocephalus or herniation. No restricted diffusion within the brain parenchyma. Espitia-white matter differentiation is normal. Bilateral multifocal patchy and confluent deep periventricular white matter hyperintense T2 FLAIR signal involving centrum semiovale and santiago radiata. Focal punctate hyperintense T2 FLAIR signal within the left dorsum of the lio. Flow-void signal within the main cerebral vessels is normal. 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 Prominence of the extra-axial CSF spaces cerebral sulci and ventricles likely central volume loss. 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 Sellar/suprasellar region is normal. Craniocervical junction is intact and normal. There is a 12 mm round intrinsic hyperintense T1 and intermediate to low signal T2 lesion within the left nasal cavity just medial to the middle turbinate. MR/MR head/brain wo con IMPRESSION: Concerning fungal infection, maxillary sinuses with a 12 mm round lesion, left nasal cavity. Recommend direct inspection and tissue sampling. Panparanasal sinus disease. Small vessel occlusive disease. Global cerebral atrophy. No acute intracranial hemorrhage or acute stroke/nonhemorrhagic ischemia. Electronically signed by: Bentley Gallo MD 10/06/2024 07:25 AM EST
--- OUTSIDE RECORDS SUMMARY | 2024-10-04 14:22 | XMS_ITS | Clinical Summary ---
Author Organization Formerly [facility] Address [address] [place] [address] Care Team Providers Care Gut Snatcher Name Role Phone Zaid Martinez MD Primary Care Provider + Allergies No known active allergies Medications Medication Sig Dispensed Refills Start Date End Date Status albuterol (PROAIR RESPICLICK) 108 (90 Base) MCG/ACT inhaler Inhale 1 puff 4 times daily (every 6 hours) as needed. Active OMEprazole (PriLOSEC) 20 MG capsule Take 20 mg by mouth every morning before breakfast. Active Na Sulfate-K Sulfate-Mg Sulf (SUPREP BOWEL PREP KIT) 17.5-3.13-1.6 GM/177ML SolutionIndications:P ersonal history of colonic polyps Take two 177 mL bottles as directed 2 Bottle 03/08/2019 Active Immunizations Name Administration Dates Next Due Influenza (AFLURIA/FLUZONE) Inactivated/Split Quadrivalent with Preservative IM 05/24/2009 Influenza Inactivated/Split Preservative Free IM 06/25/2013 TD Preservative Free 02/29/2004 Tdap 02/29/2004 Social History Tobacco Use Types Packs/Day Years Used Date Smoking Tobacco: Never Assessed Sex and Gender Information Value Date Recorded Sex Assigned at Not on file Gender Identity Not on file Sexual Orientation Not on file Last Filed Vital Signs Vital Sign Reading Time Taken Comments Blood Pressure 142/97 03/31/2013 11:24 AM EDT Pulse 80 03/31/2013 11:24 AM EDT Temperature 37.2 ??C (99 ??F) 02/22/2012 8:40 AM EDT Respiratory Rate 12 07/03/2012 11:41 AM EDT Oxygen Saturation - - Inhaled Oxygen Concentration - - Weight 93.3 kg (205 lb 9.6 oz) 03/31/2013 11:24 AM EDT Height 167.6 cm (5' 6 ) 02/22/2012 8:40 AM EDT Body Mass Index 33.18 02/22/2012 8:40 AM EDT Plan of Treatment Health Maintenance Due Date Last Done Comments Hepatitis C Virus Screening 1950 Colonoscopy 1996 Pneumococcal Vaccines 50+ (1 of 1 - PCV) 2001 Zoster (Shingles) Vaccine (1 of 2) 2001 DTaP/Tdap/Td Vaccines (3 - T d or Tdap) 02/28/2014 02/29/2004, 02/29/2004 Influenza Vaccine 04/03/2024 06/25/2013, 05/24/2009 COVID-19 Vaccine (2023-2 5 season) 2024 RSV Vaccine 60 years and older and Patients (1 - 1-dose 75+ series) 2026 Hepatitis B Vaccines Aged Out No long er eligible based on patient's age to complete this topic Care Teams Gut Snatcher Relationship Specialty Start Date End Date Zaid Martinez MD [address] [place] [id number] PCP - General 03/07/19
== END 2024-10-04 14:20 | disposition home or self-care (01) ==
LOC: HO.MRI 14:19
PROVIDERS: PCP Internal Medicine; Visit Provider Internal Medicine
DX: R51.9 Headache, unspecified (principal)
CPT/HCPCS: 70551

== ENCOUNTER → 2024-10-04 14:26 | Outpatient (BNV) | payer OTHER, SELFPAY | PROVIDERS: PCP Internal Medicine; Visit Provider Radiology Diagnostic Radiology | DX: J34.89 Other specified disorders of nose and nasal sinuses (principal) | CPT/HCPCS: 70551 ==

== ENCOUNTER 2024-11-18 11:51 | Outpatient (AMB) | payer OTHER, SELFPAY ==
--- NOTE | 2024-11-18 11:48 | MHC.PC.OV ---
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 Pressure over the forehead, temples, left>right. Starts around 11 to 1130 am and lasts all day if does not take excedrin. Takes once daily. No light or sound sensitivity. Denies maxillary pressure, ear fullness. No fevers He had MRI of the brain which showed possible fungal sinus infection. He was referred to ENT urgently but was then scheduled for June. He now has an appointment scheduled for December 05 CV: Blood pressure fluctuates. Not on medications. Asthma: On advair, albuterol prn. Hypothyroid: following with Dr Dumont. TSH continues to be mildly elevated No replacement. Will follow up with him in 6 month Rash-jock itch. Has been using clotrimazole with some relief. Eye exam: 4 months ago. Denies vision changes. ROS see HPI PHYSICAL EXAM: Telehealth [facility] Medical History H/O nephrolithotomy with removal of calculi Surgical History History of bilateral knee replacement Family History Other No known health problems Social History (Updated 11/18/24 @ 11:50 by Grace Harris CMA) Housing: House Alcohol intake: never Patient Tobacco Use Status: Never used Tobacco e-Cigarette/Vaping Use: Never Used Second Hand Smoke Exposure: No Use of substances other than those prescribed or required for medical reasons: No service: Yes Current occupational status: retired Cognitive needs: No Hearing needs: No Vision needs: Yes (Patient wears glasses) Questionnaire Thrive Questionnaire Date Thrive assessed: 10/08/23 HERB-7 AMB Questionnaire HERB-7 Date HERB - 7 assessed: 09/12/24 Source: Developed by Drs. Zeke Robbins, Margarita Alexander, Mihir Layton and colleagues, with an educational jovan from [employer]. Physical exam (Primary Care) Tobacco/Smoking Status: Tobacco use Status Tobacco use date assessed 11/18/24 11/18/24 11:50 Patient Tobacco Use Status Never used Tobacco 11/18/24 11:50 e-Cigarette/Vaping Use Never Used 11/18/24 11:50 Thrive Assessment: Date of Thrive Assessment Date Thrive assessed 10/08/23 11/18/24 11:50 Telehealth Telehealth Telehealth Platform: Telephone Location of provider rendering services: practice address Location of patient: address on file Patient Identification confirmed using: Name, : Yes Telehealth method: voice only Patient verbally consented to treatment: Yes Patient verbally consented to billing insurance company: Yes Patient informed of any privacy concerns related to visit: Yes Minutes spent on Phone/Video with Pt.: 22 Coding Level of Care Code Tele Est Pt Level 3 (25676) Diagnoses Fungal sinusitis B49; J32.9 Assessment & Plan Assessment & Plan (1) Fungal sinusitis: Code(s): B49 - Unspecified mycosis; J32.9 - Chronic sinusitis, unspecified Category: Medical Plan: Visit with ENT is scheduled. Continues daily headaches. Medications: New hmkjbqlrgq-fdqwwuuyxptye-[id number] 50-300-40 mg (Fioricet) 1 cap PO Q6H PRN 56 caps 0RF pain tramadol 50 mg PO Q8H PRN 21 tabs 0RF pain 7 days Refilled omeprazole 20 mg PO QAM 90 caps 3RF 90 days
== END 2024-11-18 14:07 | disposition home or self-care (01) ==
LOC: HO.HMCFM 11:51
PROVIDERS: PCP Internal Medicine; Visit Provider Internal Medicine
DX: B49 Unspecified mycosis (principal); J32.9 Chronic sinusitis, unspecified

== ENCOUNTER 2025-03-10 13:27 | Outpatient (AMB) | payer OTHER, SELFPAY ==
--- NOTE | 2025-03-10 13:37 | A.OFFPC_ITS ---
Vital Signs 03/10/25 13:42 Height 5 ft 6 in Weight 210 lb BMI 33.9 BP 114/76 Blood Pressure Location Rt brachial Position Sitting Respiration 14 Pulse 92 Pulse Source Pulse Oximeter Pulse Oximetry (%) 97 Oxygen Delivery Method Room Air Intake Visit Reasons: Having surgery on 03/30 ENT Intake Note: Preop nasal surgrery Air Pollution Auditor Required: No Allergies tramadol Allergy (Severe, Verified 03/10/25 13:39) Nightmare Tobacco use date assessed: 03/10/25 Fall risk assessment: 2 + Falls in past year Last assessed Fall Risk: 04/08/25 Dental Screening Dental Screen Date: 09/12/24 HPI HPI Comments History of Present Illness Details This is a 74-year-old male with a past medical history of hyperlipidemia, GERD, moderate persistent asthma and hypothyroidism presenting for preop cardiac exam-he has sinus surgery scheduled for 03/[address] Burroughs Refractory sinus pain and pressure for which surgery is planned Patient has no known cardiac disease. Asthma is well controlled on current medications Has tolerated anesthesia and surgery in the past No known JAMES Walks, mows the lawn. No cp, no exertional dyspnea. Asthma: On advair, albuterol prn. Hypothyroid: following with Dr Dumont. Eye exam: 4 months ago. Denies vision changes. ROS see HPI PHYSICAL EXAM: GENERAL: Alert and oriented x 3. NAD EYES: EOMI. Anicteric. HENT: Moist mucous membranes. No scleral icterus. No cervical lymphadenopathy. LUNGS: Clear to auscultation bilaterally. CARDIOVASCULAR: Regular rate and rhythm. No murmur. No JVD. ABDOMEN: Soft, non-tender +bs EXTREMITIES: No edema. Non-tender. SKIN: No rashes or lesions. Warm. NEUROLOGIC: No focal neurological deficits. CN II-XII grossly intact PSYCHIATRIC: Cooperative. Appropriate mood and affect [facility] Medical History H/O nephrolithotomy with removal of calculi Surgical History History of bilateral knee replacement Family History Other No known health problems Social History Housing: House Alcohol intake: never Patient Tobacco Use Status: Never used Tobacco e-Cigarette/Vaping Use: Never Used Second Hand Smoke Exposure: No service: Yes Current occupational status: retired Cognitive needs: No Hearing needs: No Vision needs: Yes (Patient wears glasses) Questionnaire Thrive Questionnaire Date Thrive assessed: 09/12/24 I am a: Patient What is your living situation today?: I have a steady place to live Within the past 12 months, did the food you bought not last and you didn't have the money to get more?: Often true Within the past 12 months, did you worry whether your food would run out before you got money to buy more?: I choose not to answer this question Do you have trouble paying for medicines?: No Do you have trouble getting transportation to medical appointments?: No Do you have trouble paying your heating and electricity bill?: No Do you have trouble taking care of your child, family member or friend?: No Do you have trouble with day-to-day activities such as bathing, preparing meals, shopping, managing finances, etc.?: No Are you currently unemployed and looking for a job?: Yes Are you interested in more education?: No Please select the resources that you would like help with: None Currently or been in a relationship where the following occur: I choose not to answer THRIVE Score: 1 AUDIT C Alcohol Use Questionnaire (AUDIT-C) 1. How often do you have a drink containing alcohol?: Never 2. How many drinks containing alcohol do you have on a typical day when you are drinking?: 1 or 2 3. How often do you have six or more drinks on one occasion?: Never Total Score: 0 HERB-7 AMB Questionnaire HERB-7 Date HERB - 7 assessed: 09/12/24 Source: Developed by Drs. Zeke Robbins, Margarita Alexander, Mihir Layton and colleagues, with an educational jovan from [employer]. Physical exam (Primary Care) Vital Signs: Last Vital Signs Pulse 92 03/10/25 13:42 Resp 14 03/10/25 13:42 BP 114/76 03/10/25 13:42 Pulse Ox 97 03/10/25 13:42 Oxygen Delivery Method Room Air 03/10/25 13:42 BMI result Body Mass Index 33.9 Tobacco/Smoking Status: Tobacco use Status Tobacco use date assessed 03/10/25 03/10/25 13:46 Patient Tobacco Use Status Never used Tobacco 03/10/25 13:38 e-Cigarette/Vaping Use Never Used 03/10/25 13:38 Thrive Assessment: Date of Thrive Assessment Date Thrive assessed 09/12/24 03/10/25 13:38 Currently or been in a relationship where the following occur: I choose not to answer Coding Level of Care Code Est Pt Level 4 (05377) Complex EM visit Add On G2211 Diagnoses Preop cardiovascular exam Z01.810 Hypercholesterolemia E78.00 Acquired hypothyroidism E03.9 Fungal sinusitis B49; J32.9 Assessment & Plan Assessment & Plan (1) Preop cardiovascular exam: Code(s): Z01.810 - Encounter for preprocedural cardiovascular examination (2) Hypercholesterolemia: Code(s): E78.00 - Pure hypercholesterolemia, unspecified Category: Medical (3) Acquired hypothyroidism: Code(s): E03.9 - Hypothyroidism, unspecified Category: Medical (4) Fungal sinusitis: Code(s): B49 - Unspecified mycosis; J32.9 - Chronic sinusitis, unspecified Category: Medical Plan 74 year old for preop evaluation No cardiac disease. Asthma well controlled RCRI 0 EKG reviewed. Labs ordered METS>/=4 Average risk for average risk procedure-he may proceed with proposed surgery without further cardiac work up Orders: Orders Complete Blood Count Auto Diff Today Z01.810 - Encounter for preprocedural cardiovascular examination Prothrombin Time INR Today Z01.810 - Encounter for preprocedural cardiovascular examination Comprehensive Met. Panel Today Z01.810 - Encounter for preprocedural cardiovascular examination
[2025-03-10 13:42] VITALS: BP 114/76; PULSE 92; RESP 14; O2SAT 97; BMI 33.9
--- OUTSIDE RECORDS SUMMARY | 2025-03-10 14:11 | XMS_ITS | Clinical Summary ---
Author Organization [facility] Address [address] [place] [address] Care Team Providers Care Cell Pourer Name Role Phone Zaid Martinez MD Primary Care Provider + Allergies No known active allergies Medications albuterol (PROAIR RESPICLICK) 108 (90 Base) MCG/ACT inhaler Inhale 1 puff 4 times daily (every 6 hours) as needed. Active OMEprazole (PriLOSEC) 20 MG capsule Take 20 mg by mouth every morning before breakfast. Active Na Sulfate-K Sulfate-Mg Sulf (SUPREP BOWEL PREP KIT) 17.5-3.13-1.6 GM/177ML SolutionIndicat ions:Personal history of colonic polyps Take two 177 mL bottles as directed 2 Bottle 03/08/2019 Active Immunizations Immunization Administration Dates Next Due Influenza (AFLURIA/FLUZONE) Inactivated/Split Quadrivalent with Preservative IM 05/24/2009 Influenza Inactivated/Split Preservative Free IM 06/25/2013 TD Preservative Free 02/29/2004 Tdap 02/29/2004 Social History Tobacco Use Types Packs/Day Years Used Date Smoking Tobacco: Never Assessed Sex and Gender Information Value Date Recorded Sex Assigned at Not on file Legal Sex Male 12:07 PM EDT Gender Identity Not on file Sexual Orientation Not on file Last Filed Vital Signs Vital Sign Reading Time Taken Comments Blood Pressure 142/97 03/31/2013 11:24 AM EDT Pulse 80 03/31/2013 11:24 AM EDT Temperature 37.2 C (99 F) 02/22/2012 8:40 AM EDT Respiratory Rate 12 [...] T d or Tdap) 02/28/2014 02/29/2004, 02/29/2004 COVID-19 Vaccine ( - 2023-2 5 season) 2024 Influenza Vaccine 04/03/2025 06/25/2013, 05/24/2009 RSV Vaccine 60 years and older and Patients (1 - 1-dose 75+ series) 2026 Hepatitis B Vaccines Aged Out No long er eligible based on patient's age to complete this topic Insurance [facility] MEDICARE PART A & B Care Teams Cell Pourer Relationship Specialty Start Date End Date Zaid Martinez MD [address] [facility] [address] [place] [address] PCP - General 03/07/19
--- OUTSIDE RECORDS SUMMARY | 2025-03-10 14:11 | XMS_ITS | Data Portability ---
Author Organization ID - [facility], Allergy Address [address] [facility] [address] [place] [phone] Care Team Providers Care Patient Care Specialist Name Role Phone MARY CHOWDARY Primary Care Provider Assessment No assessment recorded. Plan of Treatment Reminders Order Date Submit Date Provider Last Modified By Organization Details Last Modified Time Details Appointments Test Results 30 2024 04:00P Ariel Fonseca MD Not available Not available Not available SURGERY 180 2024 12:15P Ariel Fonseca MD Not available Not available Not available Post Op 2024 03:00P M DAVID BECERRA PA-C Not available Not available Not available Post Op 2024 03:30P Ariel Fonseca MD Not available Not available Not available Lab None recorded. Referral None recorded. Procedures None recorded. Surgeries septoplas ty (SURG) 2024 025 [email or web address] Not available 01/05/2025 07:47:32 endoscopy , nasal/sin us, w/ total ethmoidec chidi (SURG) 2024 025 [email or web address] Not available 01/05/2025 07:47:32 endoscopy , nasal/sin us, w/ maxillary antrostom y & tissue removal (SURG) 2024 025 [email or web address] Not available 01/05/2025 07:47:32 stereotac tic computer- assisted navigatio n (SURG) 2024 025 [email or web address] Not available 01/05/2025 07:47:[address], maxillofa cial, w/wo contrast - eval left nasal mass seen on MRI at [facility] 2024 025 [facility], [address] [place], [address], 12/29/2024 14:45:47 Medication Orders prednison e 10 mg tablet 2024 025 [id number], [address], [place], [id number], 01/02/2025 08:37:23 doxycycli ne hyclate 100 mg tablet 2024 025 [id number], [address], [place], [id number], 01/02/2025 08:37:22 prednison e 10 mg tablet 2024 025 [id number], [address], [place], [id number], 12/05/2024 08:44:57 doxycycli ne hyclate 100 mg tablet 2024 025 [id number], [address], [place], [id number], 12/05/2024 08:44:57 Patient TargetsNo targets recorded. Patient InstructionsNo instructions recorded. Reason for Referral None Reported. Results Created Date Observation Date Name Description Value Unit Range Abnormal Flag Note LastModifiedBy Organization Detail LastModifiedTime 12/30/1912/26/2024 CT, maxil lofac ial, w/wo contr ast No observ ation record ed. [email or web address] [facility] [address] [place], [address], 12/30/2024 09:09:00 Result Notes None recorded. 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 ROWAN Fonseca MD [address] [address], [place], [address], [facility] - [facility] [place] 5 08:16:06 Nasal congestion 93003421 Active 2024 ROWAN Fonseca MD [address] [address], [place], [address], [facility] - [facility] [place] 08:17:16 Chronic pansinusitis 18049075 Active 2024 ROWAN Fonseca MD [address] [address], [place], [address], [facility] - [facility] [place] 5 11:09:12 Polyp of nasal cavity 089165889 Active 2024 ROWAN Fonseca MD [address] [address], [place], [address], [facility] - [facility] [place] 08:41:47 Dizziness and giddiness 948310850 Active 2024 ROWAN Fonseca MD [address] [address], [place], [address], [facility] - [facility] [place] [place] 5 08:42:43 Deviated nasal septum 844095110 Active 2024 ROWAN Fonseca MD [address] [address], [place], [address], [facility] - [facility] [place] [place] 5 08:35:30 Hypertrophy of nasal turbinates 50993385 Active 2024 ROWAN Fonseca MD [address] [address], [place], [address], [facility] - [facility] [place] 08:36:22 Problem Notes None recorded. Procedures Surgical History Date Name Laterality Status Provider Name and Address Organization Details Recorded Time 01/02/2025 NasalEndos copy_DP completed ROWAN NUNN MD [address] [facility],[address], [address], [facility] - [facility] [place] 01/02/2025 08:32:57 12/05/2024 NasalEndos copy_DP completed ROWAN NUNN MD [address], [address], [facility] [place] [facility] 12/05/2024 08:41:42 Imaging Results None recorded. Procedure Notes None recorded. Medical Equipment None Reported. Allergies No known drug allergies Medications Name Sig Start Date Stop Date Status Note LastModified by Organization Details LastModified Time prednisone 10 mg tablet Take 4 tabs PO for 3 days then 2 tabs PO for 3 days then 1 tab PO for 3 days then stop active Not Available Not Available No t Available fluconazole 150 mg tablet TAKE 1 TABLET BY MOUTH EVERY 3 DAYS FOR 2 DOSES. MAY REPEAT SECOND DOSE 72 HOURS AFTER FOR 1 DOSE IF SYMPTOMS PERSIST 12/05 completed Not Available Not Available Not Available tramadol 50 mg tablet TAKE 1 TABLET BY MOUTH EVERY 8 HOURS FOR 7 DAYS NEEDED FOR PAIN 12/05 completed Not Available Not Available Not Available amoxicillin 500 mg tablet TAKE 4 TABLETS BY MOUTH 1 HOUR PRIOR TO DENTAL APPOINTME NTS 12/05 completed Not Available Not Available Not Available levothyroxi ne 50 mcg tablet TAKE 1 TABLET BY MOUTH DAILY active Not Available Not Available No t Available omeprazole 20 mg capsule,del ayed release TAKE 1 CAPSULE BY MOUTH EVERY MORNING active Not Available Not Available No t Available levofloxaci n 750 mg tablet TAKE 1 TABLET BY MOUTH DAILY FOR 7 DAYS active Not Available Not Available No t Available clotrimazol e 1 % topical cream APPLY THIN LAYER TOPICALLY TO THE AFFECTED AREA TWICE DAILY FOR 2 WEEKS 12/05 completed Not Available Not Available Not Available itraconazol e 100 mg capsule TAKE 2 CAPSULES BY MOUTH DAILY . TAKE WITH FOOD /MEAL active Not Available Not Available No t Available doxycycline hyclate 100 mg tablet TAKE 1 TABLET BY MOUTH TWICE DAILY FOR 10 DAYS active Not Available Not Available No t Available amoxicillin 875 mg-potassiu m clavulanate 125 mg tablet TAKE 1 TABLET BY MOUTH TWICE DAILY 12/05 completed Not Available Not Available Not Available neomycin 3.5 mg/g-polymy kusum B 10,000 unit/g-dexa meth 0.1 % eye oint INSTILL A SMALL AMOUNT TO THE CYST NEAR RIGHT EYE TWICE DAILY 12/05 completed Not Available Not Available Not Available Wixela Inhub 250 mcg-50 mcg/dose powder for inhalation INHALE 1 PUFF BY MOUTH EVERY 12 HOURS active Not Available Not Available No t Available Vitals Date Recorded Body height Body weight Provider Name and Address Organization Details Last Updated DateTime 12/05/2024 167.64 cm 79428.44 g Echo Flynn [place] - [facility] 12/05/2024 08:04:51 Date Recorded Body height Body mass index (BMI) Body weight Provider Name and Address Organization Details Last Updated DateTime 01/02/2025 167.64 cm 33.1 kg/m2 15877.44 g Lincoln Downs [place] - [facility] 01/02/2025 08:03:09 Social History None recorded. Functional Status None recorded. Mental Status None recorded. Family History Nothing Reported. Medical History Condition Response Asthma Y Past Encounters Encounter ID Performer Location Encounter Start Date Encounter Closed Date Diagnosis/Indication Diagnosis SNOMED-CT Code Diagnosis ICD10 Code Diagnosis Note [id number] ROWAN NUNN MD [facility] [address] [place] [address] 12/05/2024 07:51:05 12/05/2024 09:57:32 Atypical facial pain 98366904 G50.1 Likely due to sinusitis due to obstructiv e polyps. I will treat with maximal medical therapy for sinusitis. 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 I was unable to review his MRI images as they were done at [facility]. I asked them to have the images burned onto a CD and bring to the next appointmen t. I will obtain a contrasted CT max face in the meantime to assess better the sinuses and any polyps or masses. I would like to review images before considerin g a biopsy. I will also treat with maximal medical therapy for sinusitis in the hopes of shrinking the polyps and improving his symptoms. Nasal congestion 9680848 0 R09.81 Likely due to polyposis. Chronic pansinusitis 888 [address] J32.4 I reviewed his MRI report. It suggests a left-sided nasal polyp which correlates with my nasal endoscopy. I recommend maximal medical therapy. I suspect this will improve his facial pain. I will also obtain a CT max face with contrast to reevaluate and discuss at the next visit. Polyp of nasal cavity 73 8686593 J33.0 See above. Dizziness and giddiness 423001040 R42 Unclear if related to the sinusitis. We will see if this improves after maximal medical therapy. [id number] ROWAN NUNN MD [facility] [address] [place] [address] 01/02/2025 07:55:58 01/02/2025 08:35:02 Atypical facial pain 74493556 G50.1 Likely due to sinusitis due to obstructiv e polyps. I will treat with maximal medical therapy for sinusitis. 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 I was unable to review his MRI images as they were done at [facility]. I asked them to have the images burned onto a CD and bring to the next appointmen t. I will obtain a contrasted CT max face in the meantime to assess better the sinuses and any polyps or masses. I would like to review images before considerin g a biopsy. I will also treat with maximal medical therapy for sinusitis in the hopes of shrinking the polyps and improving his symptoms. Nasal congestion 9391031 0 R09.81 Likely due to polyposis. Chronic pansinusitis 888 37126 J32.4 I personally reviewed his CT sinus. It shows pansinusit is. The patient has failed medical therapy and is a candidate for FESS. The surgical plan will including: BILATERAL MAXILLARY ANTROSTOMY AND TOTAL ETHMOIDECT KALIN may require septoplast y for access I discussed the risks, benefits and alternativ es to endoscopic sinus surgery including but not limited to damage to the orbit or optic nerve resulting in vision loss, double vision, or blindness. I also discussed the risk of CSF leak. I discussed the risk of recurrence of sinus disease or polyps requiring additional procedures , change in sense of smell, septal perforatio n, bleeding and infection including risks to damaging the internal carotid artery. I discussed the risk of damage to the tear duct with excessive tearing. I discussed the possible need for septoplast y for access. I discussed the risks, benefits and alternativ es to septoplast y. Specifical ly, I discussed the risk of bleeding (which may require more procedures or packing), infection, septal perforatio n, septal hematoma which if unrecogniz ed can lead to cosmetic nasal deformity, CSF leak, persistent nasal obstructio n despite surgery, change in appearance of nose if structural support is disrupted, change in sense of smell, and the possibilit y of predisposi tion of future sinus infections . I also discussed the possible need for nasal splints. The patient understand s the risks and would like to proceed. We will schedule surgery mutually convenient time. I recommend he start prednisone and doxycyclin e 5 days before surgery Polyp of nasal cavity 73 7898917 J33.0 See above. Deviated nasal septum 12 3650192 J34.2 The patient is indicated for and a good candidate for septoplast y if needed for access. I discussed the risks, benefits and alternativ es to septoplast y. Specifical ly I discussed the risk of bleeding (which may require more procedures or packing), infection, septal perforatio n, septal hematoma which if unrecogniz ed can lead to cosmetic nasal deformity, CSF leak, persistent nasal obstructio n despite surgery, change in appearance of nose if structural support is disrupted, change in sense of smell, and the possibilit y of predisposi tion of future sinus infections . I also discussed the possible need for nasal splints. The patient understand s the risks and would like to proceed. We will schedule surgery mutually convenient time. Health Concerns Section Related Observation LastModified by Organization Detai ls LastModified Time None Recorded Concern Status LastModified by Organization Details LastModified Time None Recorded Advance Directives Directive None Recorded Payers Insurance Date Sequence Insurance Name Policy Number Policy Jarrett Covered Member ID Jarrett Member ID Guarantor Name 12/10/2024 1 [employer] (MEDICARE REPLACEMENT/A DVANTAGE - PPO) Mohsen Zamarripa [id number] Mohsen Zamarripa 12/10/2024 2 [place] [facility] Mohsen Zamarripa [id number] Mohsen Zamarripa 12/10/2024 1 [place] [facility] Mohsen Zamarripa [id number] Mohsen Zamarripa 12/10/2024 2 [place] [facility] Mohsen Malin [id number] Mohsen Zamarripa 01/02/2025 1 [employer] (MEDICARE REPLACEMENT/A DVANTAGE - PPO) Mohsen Zamarripa [id number] Mohsen Zamarripa Notes Date Note Type Note Provider Name and Address Organization Details Recorded Time 12/05/2024 text/html He has had front al pain since June. He had an MRI brain 10/04/24 which showed a round lesion (12mm) medial to the middle turbinate on the left. Direct inspection and biopsy was recommended. He has not been treated with abx. He is not on any blood thinners. Denies double vision and vision change. Tyelenol and NSAIDs don't help typically. Reports left nasal obstruction. He has had some disequilibrium. The CT scan also suggested a possible fungal infection. ROWAN NUNN MD [address] [place] [address], [phone], [place] - [facility] 12/05/2024 08:44:53 01/02/2025 text/html He has had front al pain since June. He had an MRI brain 10/04/24 which showed a round lesion (12mm) medial to the middle turbinate on the left. Direct inspection and biopsy was recommended. We obtained a CT sinus since the last visit with showed pansinusitis involving the bilateral maxillary, ethmoid, and frontal sinuses. The sphenoid sinuses were spared. No destructive changes were seen. He returns after a course of maximal medical therapy with antibiotics and steroids. He reports he received no benefit in his facial pressure with the steroids and antibiotics. Hx of asthma. ROWAN NUNN MD [address] [facility],[address], [address], [facility] - [facility] 01/02/2025 08:37:20
--- OUTSIDE RECORDS SUMMARY | 2025-03-10 14:11 | XMS_ITS | Clinical Summary ---
Author Organization [facility] Address [address] [place] [address] Care Team Providers Care Liquor Clerk Name Role Phone Unavailable Primary Care Provider Unavailabl e Social History Tobacco Use Types Packs/Day Years Used Date Smoking Tobacco: Never Assessed Sex and Gender Information Value Date Recorded Sex Assigned at Not on file Gender Identity Not on file Sexual Orientation Not on file Job Start Date Occupation Industry Not on file Not on file Not on file Plan of Treatment Not on file Mohsen Zamarripa Personal/Family Self 1950 [address] [place] [address]
--- OUTSIDE RECORDS SUMMARY | 2025-03-10 14:11 | XMS_ITS | Continuity of Care Document ---
Author Organization [facility] [address] [place] [address] Phone [phone] Care Team Providers Care Eviscerator Name Role Phone Miguel A Sargent MD Care Team Information Log Chipper Operator [phone] Problems Active Problems Provider Date Hyperlipidemia Luis Max M.D. Onset: 0 02/04/2024 Essential hypertension Luis Max M.D. O nset: 02/04/2024 Iron deficiency anemia Luis Max M.D. O nset: 02/04/2024 Pure hypercholesterolemia Ivanna Penaloza Onset: 02/04/2024 Hypothyroidism Luis Max M.D. Onset: 0 02/04/2024 Asthma Luis Max M.D. Onset: 0 02/04/2024 Social History Type Date Description Comments Sex Male Sex Unknown Marital Status Significant Other Lives With Significant Other Fiance Tobacco Use Start: Unknown Never Smoked Cigarettes ETOH Use Never used alcohol Allergies and adverse reactions Active Allergies Criticality Reaction Severity Comments Date Tramadol Unable to assess criticality 02/04/2024 Medications Active Medications SIG Qnty Indications Ordering Provider Date [id number] Capsules DR Take 1 Capsule By Mouth Every Morning Miguel A Sargent MD Albuterol Sulfate [id number](90Base) mcg/Act Aerosol Inhale 2 Puffs By Mouth Every 4 To 6 Hours as Needed For Shortness Of Breath Or Miguel A Sargent MD Vital Signs Date Vital Result Comment 08/06/2024 10:48am BP Systolic 165 mmHg BP Diastolic 90 mmHg Height 66 inches 5'6 Weight 202.50 lb BMI (Body Mass Index) 32.7 kg/m2 Results Test Acquired Date Facility Test Result H/L [facility] Thyroxine (T4) Free, Direct 08/06/2024 [facility] Thyroxine (T4) Free, Direct 1.02 ng/dL 0.82-1.77 TSH 08/06/2024 [facility] TSH 7.420 uIU/mL High 0.450-4.50 0 TSH RFX On Abnormal To Free T4 02/05/2024 [facility] TSH RFX On Abnormal To Free T4 <pending> TSH+Free T4 02/04/2024 [facility] TSH 8.210 uIU/mL High 0.450-4.50 0 T4,Free(Direct) 0.96 ng/dL 0.82- 1.77 Thyroid Peroxidase (Tpo) Ab 02/04/2024 [facility] Thyroid Peroxidase (Tpo) Ab 176 IU/mL High 0-34 Medical Devices Description No Information Available Encounters Type Date Location Provider Dx Diagnosis Office Visit 08/06/2024 10:30a Main Office Luis Max M.D. 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 08/06/2024 E03.9 Hypothyroidism, unspecified Luis Max M.D. Plan of Treatment Future Appointment(s):* 06/03/2025 1:15 pm - Luis Max M.D. 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
== END 2025-03-10 14:14 | disposition home or self-care (01) ==
LOC: HO.HMCFM 13:28
PROVIDERS: PCP Internal Medicine; Visit Provider Internal Medicine
DX: Z01.810 Encounter for preprocedural cardiovascular examination (principal); E78.00 Pure hypercholesterolemia, unspecified; E03.9 Hypothyroidism, unspecified; B49 Unspecified mycosis; J32.9 Chronic sinusitis, unspecified

== ENCOUNTER 2025-03-10 14:15 | Outpatient (REF) | payer OTHER, SELFPAY ==
--- OUTSIDE RECORDS SUMMARY | 2025-03-10 15:09 | XMS_ITS ---
Author Name [facility] Organization Unknown History of Medication Use Medication Directions Dispensed Refills Start Date End Date Stat us Na Sulfate-K Sulfate-Mg Sulf (SUPREP BOWEL PREP KIT) 17.5-3.13-1.6 GM/177ML Solution Take two 177 mL bottles as directed 03/08/2019 active albuterol (PROAIR RESPICLICK) 108 (90 Base) MCG/ACT inhaler Inhale 1 puff 4 times daily (every 6 hours) as needed. active OMEprazole (PriLOSEC) 20 MG capsule Take 20 mg by mouth every morning before breakfast. active Problems Problem Status Onset Date Problem Type Date of Resoluti on Source Chronic pansinusitis active EncounterDiagnosisA ct [facility] Immunizations Vaccine Date Source Lot Number Status Influenza (AFLURIA/FLUZONE) Inactivated/Split Quadrivalent with Preservative IM 05/24/2009 [facility] completed TD Preservative Free 02/29/2004 [facility] comp leted Tdap 02/29/2004 [facility] completed
[2025-03-10 17:28] LABS: MANUAL DIFF FLAG NO
[2025-03-10 17:41] LABS: Hematocrit 39.9 % (42.0-52.0); Hemoglobin 12.9 g/dl (14.0-18.0); Imm Gran Abs Auto 0.01 X10*3/uL (0.00-0.03); Imm Gran Pct Auto 0.2 % (0.0-0.4); Lymphocytes Absolute Auto 1.3 X10*3/uL (1.2-4.9); Mean Corpuscular HGB Conc 32.3 g/dl (31.0-36.0); Mean Corpuscular Hemoglobin 25.4 pg (27.0-33.0); Mean Corpuscular Volume 78.7 fL (80.0-98.0); NRBC Abs Auto 0.000 X10*3/uL (0.0-0.012); NRBC Pct Auto 0.0 /100WBC (0.0-0.2); Platelet Count 241 X10*3/uL (160-400); Red Blood Count 5.07 X10*6/uL (4.60-5.80); White Blood Count 5.5 X10*3/uL (4.8-10.8)
[2025-03-10 17:42] LABS: INTERNATIONAL NORM RATIO 1.0 (0.9-1.1); Prothrombin Time 11.7 SEC (10.9-12.4)
[2025-03-10 17:48] LABS: Alanine Aminotransferase 17 U/L (0-40); Albumin Level 4.4 g/dL (3.5-5.0); Alkaline Phosphatase 117 U/L (39-117); Anion Gap 12 (12-20); Aspartate Amino Transferase 25 U/L (5-37); Blood Urea Nitrogen 20 mg/dL (9-16); Calcium 9.2 mg/dL (8.4-10.2); Carbon Dioxide 24 mmol/L (22-29); Chloride 104 mmol/L (96-108); Estimated Glomerular Filt Rate 53; Potassium 4.0 mmol/L (3.3-5.1); Sodium 136 mmol/L (135-145); Total Protein 7.6 g/dL (6.5-8.0)
== END 2025-03-10 14:16 | disposition home or self-care (01) ==
LOC: HO.WFDLDS 14:15
PROVIDERS: Visit Provider Internal Medicine
DX: Z01.810 Encounter for preprocedural cardiovascular examination (principal)
CPT/HCPCS: 36415; 80053; 85025; 85610

== ENCOUNTER 2025-05-22 12:50 | Outpatient (AMB) | payer OTHER, SELFPAY ==
--- OUTSIDE RECORDS SUMMARY | 2025-05-22 12:53 | XMS_ITS | Continuity of Care Document ---
Author Organization [facility] [address] [place] [address] Phone [phone] Care Team Providers Care Social Work Lecturer Name Role Phone Miguel A Sargent MD Care Team Information Domestic Housekeeper [phone] Problems Active Problems Provider Date Hyperlipidemia Luis [...] Medications SIG Qnty Indications Ordering Provider Date [id number] Capsules DR Take 1 Capsule By Mouth Every Morning Miguel A Sargent MD Albuterol Sulfate FDI797(90Base) mcg/Act Aerosol Inhale 2 Puffs By Mouth [...]
--- OUTSIDE RECORDS SUMMARY | 2025-05-22 12:53 | XMS_ITS | Clinical Summary ---
Author Organization [facility] Address [address] [place] [address] Care Team Providers Care Nursery Teacher Name Role Phone Unavailable Primary Care Provider [...] Zamarripa Personal/Family Self 1950 [address] [place] [address]
--- OUTSIDE RECORDS SUMMARY | 2025-05-22 12:54 | XMS_ITS | Clinical Summary ---
Author Organization [facility] Address [address] [place] [address] Care Team Providers Care Maxillofacial Prosthodontist Name Role Phone Zaid Martinez MD Primary [...] Health Maintenance Due Date Last Done Comments Advance Care Planning 1950 Hepatitis C Virus Screening 1950 Colonoscopy 1996 Pneumococcal Vaccines 50+ (1 of 1 - PCV) 2001 Zoster (Shingles) Vaccine (1 of 2) 2001 DTaP/Tdap/Td Vaccines (3 - T d or Tdap) 02/28/2014 02/29/2004, 02/29/2004 Influenza Vaccine 04/03/2025 06/25/2013, 05/24/2009 COVID-19 Vaccine ( - 2023-2 5 season) 2025 RSV Vaccine 60 years and older and Patients (1 - 1-dose 75+ series) 2026 Hepatitis B Vaccines Aged Out No long er eligible based on patient's age to complete this topic Insurance [employer] MEDICARE MEDICARE PART A & B Care Teams Maxillofacial Prosthodontist Relationship Specialty Start Date End Date Zaid Martinez MD [address] [place] [address] PCP - General 03/07/19
--- NOTE | 2025-05-22 12:58 | MHC.PC.OV ---
Vital Signs 05/22/25 13:04 Height 5 ft 6 in Weight 204 lb 2 oz BMI 32.9 BP 126/78 Blood Pressure Location Rt brachial Position Sitting Respiration 14 Pulse 80 Pulse Source Pulse Oximeter Temp 98.2 F Temp Source Temporal Artery Scan Pulse Oximetry (%) 93 Oxygen Delivery Method Room Air Intake Visit Reasons: Bleeding Ulcer Intake Note: Mohsen presents in the office today due to a bleeding ulcer. Allergies tramadol Allergy (Severe, Verified 05/22/25 13:01) Nightmare Tobacco use date assessed: 05/22/25 Fall risk assessment: No Falls in past year Last assessed Fall Risk: 05/22/25 Dental Screening Dental Screen Date: 05/22/25 Did you have a dental visit in the last 12 months?: Yes Did you have a dental problem in the last 6 months where you did not have access to dental care?: No Was dental information given to patient?: Patient has dentist HPI HPI Comments History of Present Illness Details This is a 74-year-old male with a past medical history of hyperlipidemia, GERD, moderate persistent asthma and hypothyroidism presenting for follow up He was hospitalized from 05/14-05/15/2025. Presented with abrupt vomiting with heather blood on the evening of presentation. Prior to this had noted some dark stools and abdominal discomfort that was followed by nausea and initially non bloody vomiting. Hypotensive on arrival at 67/52. Given fluids IV pantoprazole, zofran, ceftriaxone and octreotide drip. Recved a unit of prbc. Hgb 10.4 to 10. TSH 27.1, creatine 1.25. Transferred to [facility]. CTA abd/pelvis c/w esophagitis. Evaluated by GI did undergo EGD 05/14. showed ulcer distal esophagues with stigmata of recent bleeding. 2 endoclip placed. Noted grade D esophagitis hiatal hernia and erythema in the duodenum. d/c of PPI 40 bid and carafate. recommend EGD 4 weeks. Hgb dropped to 8.7 at lowest then stable. Has upper endoscopy scheduled for Jun 03. no interval episodes of emesis or dark stools Sinusitis-s/p sinus surgery in March. Saw ENT this week, Dr Burroughs. Placed on doxy and prednisone. Advised caution with doxy-water and upright Asthma: On advair, albuterol prn. Hypothyroid: following with Dr Dumont. Eye exam: UTD Denies vision changes. ROS see HPI PHYSICAL EXAM: GENERAL: Alert and oriented x 3. NAD, pallor EYES: EOMI. Anicteric. HENT: Moist mucous membranes. No scleral icterus. No cervical lymphadenopathy. LUNGS: Clear to auscultation bilaterally. CARDIOVASCULAR: Regular rate and rhythm. No murmur. No JVD. ABDOMEN: Soft, non-tender +bs EXTREMITIES: No edema. Non-tender. SKIN: No rashes or lesions. Warm. NEUROLOGIC: No focal neurological deficits. CN II-XII grossly intact PSYCHIATRIC: Cooperative. Appropriate mood and affect [facility] Medical History H/O nephrolithotomy with removal of calculi Surgical History History of bilateral knee replacement Family History Other No known health problems Social History Housing: House Alcohol intake: never Patient Tobacco Use Status: Never used Tobacco e-Cigarette/Vaping Use: Never Used Second Hand Smoke Exposure: No Use of substances other than those prescribed or required for medical reasons: No service: Yes Current occupational status: retired Cognitive needs: No Hearing needs: No Vision needs: Yes (Patient wears glasses) Questionnaire Thrive Questionnaire Date Thrive assessed: 09/12/24 I am a: Patient What is your living situation today?: I have a steady place to live Within the past 12 months, did the food you bought not last and you didn't have the money to get more?: Often true Within the past 12 months, did you worry whether your food would run out before you got money to buy more?: I choose not to answer this question Do you have trouble paying for medicines?: No Do you have trouble getting transportation to medical appointments?: No Do you have trouble paying your heating and electricity bill?: No Do you have trouble taking care of your child, family member or friend?: No Do you have trouble with day-to-day activities such as bathing, preparing meals, shopping, managing finances, etc.?: No Are you currently unemployed and looking for a job?: Yes Are you interested in more education?: No Please select the resources that you would like help with: None Currently or been in a relationship where the following occur: I choose not to answer THRIVE Score: 1 HERB-7 AMB Questionnaire HERB-7 Date HERB - 7 assessed: 09/12/24 Source: Developed by Drs. Zeke Robbins, Margarita Alexander, Mihir Layton and colleagues, with an educational jovan from [employer]. Physical exam (Primary Care) Vital Signs: Last Vital Signs Temp 98.2 F 05/22/25 13:04 Pulse 80 05/22/25 13:04 Resp 14 05/22/25 13:04 BP 126/78 05/22/25 13:04 Pulse Ox 93 05/22/25 13:04 Oxygen Delivery Method Room Air 05/22/25 13:04 BMI result Body Mass Index 32.9 Tobacco/Smoking Status: Tobacco use Status Tobacco use date assessed 05/22/25 05/22/25 13:09 Patient Tobacco Use Status Never used Tobacco 05/22/25 13:04 e-Cigarette/Vaping Use Never Used 05/22/25 13:04 Thrive Assessment: Date of Thrive Assessment Date Thrive assessed 09/12/24 05/22/25 12:58 Currently or been in a relationship where the following occur: I choose not to answer Coding Level of Care Code Est Pt Level 4 (87055) Diagnoses Hospital discharge follow-up Z09 Gastrointestinal hemorrhage, unspecified gastrointestinal hemorrhage type K92.2 GI bleed type/associated pathology: unspecified gastrointestinal hemorrhage type Anemia, unspecified type D64.9 Anemia type: unspecified type Apnea R06.81 Assessment & Plan Assessment & Plan (1) Hospital discharge follow-up: Code(s): Z09 - Encounter for follow-up examination after completed treatment for conditions other than malignant neoplasm (2) GIB (gastrointestinal bleeding): Code(s): K92.2 - Gastrointestinal hemorrhage, unspecified Category: Medical Qualifiers: GI bleed type/associated pathology: unspecified gastrointestinal hemorrhage type Qualified Code(s): K92.2 - Gastrointestinal hemorrhage, unspecified (3) Anemia: Code(s): D64.9 - Anemia, unspecified Category: Medical Qualifiers: Anemia type: unspecified type Qualified Code(s): D64.9 - Anemia, unspecified (4) Apnea: Code(s): R06.81 - Apnea, not elsewhere classified Category: Medical Plan 74 year old for hospital discharge follow up Hospital course, labs, imaging reviewed. Meds reconciled Apnea during hospitalization-sleep testing and sleep referral placed On abx prednisone for sinusitis [id number] cbc Orders: Orders RT home sleep study Today R06.81 - Apnea, not elsewhere classified, R06.83 - Snoring Complete Blood Count Auto Diff Today K92.2 - Gastrointestinal hemorrhage, unspecified Referrals Sleep Medicine Referral R06.81 - Apnea, not elsewhere classified, R06.83 - Snoring
[2025-05-22 13:04] VITALS: BP 126/78; PULSE 80; RESP 14; TEMP 36.8; O2SAT 93; BMI 32.9
== END 2025-05-22 13:31 | disposition home or self-care (01) ==
LOC: HO.HMCFM 12:51
PROVIDERS: PCP Internal Medicine; Visit Provider Internal Medicine
DX: Z09 Encounter for follow-up examination after completed treatment for conditions other than malignant neoplasm (principal); K92.2 Gastrointestinal hemorrhage, unspecified; D64.9 Anemia, unspecified; R06.81 Apnea, not elsewhere classified

== ENCOUNTER 2025-05-22 12:50 | Outpatient (REF) | payer OTHER, SELFPAY ==
[2025-05-22 17:53] LABS: MANUAL DIFF FLAG NO
[2025-05-22 18:33] LABS: Hematocrit 29.5 % (42.0-52.0); Hemoglobin 9.4 g/dl (14.0-18.0); Imm Gran Abs Auto 0.02 X10*3/uL (0.00-0.03); Imm Gran Pct Auto 0.4 % (0.0-0.4); Lymphocytes Absolute Auto 0.5 X10*3/uL (1.2-4.9); Mean Corpuscular HGB Conc 31.9 g/dl (31.0-36.0); Mean Corpuscular Hemoglobin 25.1 pg (27.0-33.0); Mean Corpuscular Volume 78.9 fL (80.0-98.0); NRBC Abs Auto 0.000 X10*3/uL (0.0-0.012); NRBC Pct Auto 0.0 /100WBC (0.0-0.2); Platelet Count 368 X10*3/uL (160-400); Red Blood Count 3.74 X10*6/uL (4.60-5.80); White Blood Count 5.4 X10*3/uL (4.8-10.8)
== END 2025-05-22 12:51 | disposition home or self-care (01) ==
LOC: HO.WFDLDS 12:50
PROVIDERS: PCP Internal Medicine; Visit Provider Internal Medicine
DX: Z09 Encounter for follow-up examination after completed treatment for conditions other than malignant neoplasm (principal); K92.2 Gastrointestinal hemorrhage, unspecified; D64.9 Anemia, unspecified; R06.81 Apnea, not elsewhere classified
CPT/HCPCS: 36415; 85025